=== PATIENT | female | born 1950 | race African-American/Black ===

== ENCOUNTER 2016-05-22 09:03 | Emergency (ER) | payer MEDICARE, OTHER ==
[2016-05-22 09:30] LABS: Glucose,Whole Blood 449 mg/dL (75-99)
[2016-05-22] MEDS ORDERED: SODIUM CHLORIDE 0.9% 1,000 ML IV ONE (09:33)
[2016-05-22] MEDS ORDERED: ACETAMINOPHEN TAB 500 MG TAB PO STA (09:58)
--- NOTE | 2016-05-22 09:58 | ED ---
Recheck HPI - General Chief Complaint: Recheck/Abnormal Lab/Rx Stated Complaint: HYPERGLYCEMIA Time Seen by Provider: 05/22/16 09:19 Source: patient, RN notes reviewed Mode of arrival: wheelchair Limitations: no limitations - History of Present Illness Initial Comments: Patient is a 65-year-old female presents to the emergency room for evaluation of hyperglycemia. Patient is present with sawmill supervisor at her long-term. Patient's sawmill supervisor states that patient's blood sugar was around 350 yesterday. Patient's sawmill supervisor states that they called patient's physician the told her to give her 10 more units of NovoLog onto her normal dose. Patient supervised states that the sugars went down. Patient's sawmill supervisor states that patient's sugar was at 441 around 6:30 this morning. Patient sawmill supervisor states they contacted the patient's physician and they told her to give her 10 extra units of NovoLog on top of her normal dose and if it still did not go down to come to the emergency room. Patient sawmill supervisor states that the sugars have not gone down. Patient sawmill supervisor denies any changes in behavior. Patient sawmill supervisor states patient is still urinating regularly and eating regularly. Patient sawmill supervisor denies any significant cough. Patient states she's having slight throat pain and abdominal pain. Patient denies nausea or vomiting, diarrhea or constipation. Patient denies headache or dizziness. Patient denies ear pain or chest pain or shortness of breath. Patient sawmill supervisor denies any fevers until arrival at the ER. - Related Data Home Medications Medication Instructions Recorded Confirmed Ammonium Lactate Cream [Lac-Hydrin 1 applic TOPICAL BID 05/22/16 05/22/16 12% Cream] Aspirin EC [Ecotrin Low Dose] 81 mg PO DAILY 05/22/16 05/22/16 Benztropine Mesylate [Cogentin] 0.5 mg PO DAILY 05/22/16 05/22/16 Brimonidine Tartrate [Alphagan P 1 drop BOTH EYES BID 05/22/16 05/22/16 0.1% Ophth Soln] Carboxymethylcellulose Sodium 1 drop RIGHT EYE DAILY PRN 05/22/16 05/22/16 [Refresh Tears] Cholecalciferol [Vitamin D3] 1,000 unit PO DAILY 05/22/16 05/22/16 Docusate [Colace] 100 mg PO BID 05/22/16 05/22/16 Hydrochlorothiazide [Hydrodiuril] 25 mg PO DAILY 05/22/16 05/22/16 Insulin Aspart [NovoLOG] 1 unit SQ AC-SUPPER 05/22/16 05/22/16 Insulin Aspart [NovoLOG] 10 unit SQ QAM 05/22/16 05/22/16 Insulin Aspart [NovoLOG] 12 unit SQ AC-LUNCH 05/22/16 05/22/16 Insulin Detemir [Levemir] 42 unit SQ HS 05/22/16 05/22/16 Lactulose 10 gm PO BID 05/22/16 05/22/16 Latanoprost [Xalatan 0.005%] 1 drop BOTH EYES HS 05/22/16 05/22/16 Levothyroxine Sodium [Synthroid] 125 mcg PO DAILY 05/22/16 05/22/16 Lisinopril [Zestril] 5 mg PO HS 05/22/16 05/22/16 Omeprazole 20 mg PO DAILY 05/22/16 05/22/16 Sertraline [Zoloft] 100 mg PO HS 05/22/16 05/22/16 Timolol [Betimol 0.5% Ophth Soln] 1 drop BOTH EYES BID 05/22/16 05/22/16 risperiDONE 3 mg PO QAM 05/22/16 05/22/16 risperiDONE 4.5 mg PO HS 05/22/16 05/22/16 Allergies Allergy/AdvReac Type Severity Reaction Status Date / Time Penicillins Allergy Unknown Verified 05/22/16 10:17 Review of Systems ROS Statement: Those systems with pertinent positive or pertinent negative responses have been documented in the HPI. ROS Other: All systems not noted in ROS Statement are negative. Past Medical History Past Medical History: Diabetes Mellitus Additional Past Medical History / Comment(s): hep b, mental retardation History of Any Multi-Drug Resistant Organisms: None Reported Past Surgical History: Hysterectomy Past Psychological History: Schizophrenia Smoking Status: Never smoker Past Alcohol Use History: None Reported Past Drug Use History: None Reported General Exam - General Exam Comments Initial Comments: Sitting in exam room in no acute distress. Limitations: no limitations General appearance: alert Head exam: Present: atraumatic, normocephalic, normal inspection Eye exam: Present: normal appearance, PERRL, EOMI Pupils: Present: normal accommodation ENT exam: Present: normal exam, mucous membranes moist, TM's normal bilaterally , normal external ear exam Neck exam: Present: normal inspection, full ROM. Absent: tenderness, lymphadenopathy Respiratory exam: Present: normal lung sounds bilaterally. Absent: respiratory distress Cardiovascular Exam: Present: normal rhythm, tachycardia, normal heart sounds GI/Abdominal exam: Present: soft, normal bowel sounds. Absent: distended, tenderness, guarding, rebound, rigid Extremities exam: Present: normal inspection Back exam: Present: normal inspection Neurological exam: Present: alert Psychiatric exam: Present: normal affect, normal mood Skin exam: Present: warm, dry, intact, normal color. Absent: rash Course Vital Signs 05/22/16 05/22/16 05/22/16 09:10 10:34 11:30 Temperature 100.5 F H Pulse Rate 108 H 97 Respiratory 17 20 Rate Blood Pressure 147/76 167/76 186/76 O2 Sat by Pulse 94 L 99 Oximetry 05/22/16 05/22/16 05/22/16 12:30 13:30 14:15 Temperature 98.9 F 97.9 F Pulse Rate 94 90 89 Respiratory 18 18 18 Rate Blood Pressure 166/79 163/82 157/72 O2 Sat by Pulse 96 98 98 Oximetry Medical Decision Making - Medical Decision Making Patient is a 65-year-old female presents emergency room for evaluation of hyperglycemia and fever. WBC slightly elevated. Patient's glucose down trending after fluids and subq insulin. Other labs show no concerning findings. Urine shows no sign of urinary tract infection. CT of abdomen/ pelvis shows no acute processes. Patient's vitals are all stable. Patient is feeling better. Patient can be discharged and advised to follow-up with primary care provider for possible adjustment of insulin dose. Patient's sawmill supervisor states understands everything that was discussed with her. Return parameters discussed. Case discussed with Dr. Etienne. - Lab Data Result diagrams: 05/22/16 10:11 05/22/16 10:11 Lab Results 05/22/16 05/22/16 05/22/16 Range/Units 09:15 09:28 10:11 WBC (3.8-10.6) k/uL RBC (3.80-5.40) m/uL Hgb (11.4-16.0) gm/dL Hct (34.0-46.0) % MCV (80.0-100.0) fL MCH (25.0-35.0) pg MCHC (31.0-37.0) g/dL RDW (11.5-15.5) % Plt Count (150-450) k/uL Neutrophils % % Lymphocytes % % Monocytes % % Eosinophils % % Basophils % % Neutrophils # (1.3-7.7) k/uL Lymphocytes # (1.0-4.8) k/uL Monocytes # (0-1.0) k/uL Eosinophils # (0-0.7) k/uL Basophils # (0-0.2) k/uL Hypochromasia PT (9.0-12.0) sec INR (<1.1) APTT (22.0-30.0) sec Sodium (137-145) mmol/L Potassium (3.5-5.1) mmol/L Chloride (98-107) mmol/L Carbon Dioxide (22-30) mmol/L Anion Gap mmol/L BUN (7-17) mg/dL Creatinine (0.52-1.04) mg/dL Est GFR (MDRD) Af Amer (>60 ml/min/1.73 sqM) Est GFR (MDRD) Non-Af (>60 ml/min/1.73 sqM) Glucose (74-99) mg/dL POC Glucose (mg/dL) 419 H 449 H (75-99) mg/dL POC Glu Spinal Surgeon Jory Zapata Emily Plasma Lactic Acid Singh (0.7-2.0) mmol/L Calcium (8.4-10.2) mg/dL Total Bilirubin (0.2-1.3) mg/dL AST (14-36) U/L ALT (9-52) U/L Alkaline Phosphatase (38-126) U/L Total Creatine Kinase 58 (30-135) U/L CK-MB (CK-2) 0.3 (0.0-2.4) ng/mL CK-MB (CK-2) Rel Index 0.5 Troponin I <0.012 (0.000-0.034) ng/mL Total Protein (6.3-8.2) g/dL Albumin (3.5-5.0) g/dL Cortisol ug/dL Urine Color Urine Appearance (Clear) Urine pH (5.0-8.0) Ur Specific Sharon (1.001-1.035) Urine Protein (Negative) Urine Glucose (UA) (Negative) Urine Ketones (Negative) Urine Blood (Negative) Urine Nitrite (Negative) Urine Bilirubin (Negative) Urine Urobilinogen (<2.0) mg/dL Ur Leukocyte Esterase (Negative) Acetone, Qual (Negative) Influenza Type A RNA (Not Detectd) Influenza Type B (PCR) (Not Detectd) Group A Strep Rapid (Negative) 05/22/16 05/22/16 05/22/16 Range/Units 10:11 10:11 10:11 WBC 11.1 H (3.8-10.6) k/uL RBC 4.52 (3.80-5.40) m/uL Hgb 12.4 (11.4-16.0) gm/dL Hct 40.0 (34.0-46.0) % MCV 88.4 (80.0-100.0) fL MCH 27.5 (25.0-35.0) pg MCHC 31.1 (31.0-37.0) g/dL RDW 13.7 (11.5-15.5) % Plt Count 160 (150-450) k/uL Neutrophils % 77 % Lymphocytes % 10 % Monocytes % 8 % Eosinophils % 1 % Basophils % 1 % Neutrophils # 8.6 H (1.3-7.7) k/uL Lymphocytes # 1.1 (1.0-4.8) k/uL Monocytes # 0.9 (0-1.0) k/uL Eosinophils # 0.1 (0-0.7) k/uL Basophils # 0.1 (0-0.2) k/uL Hypochromasia Slight PT (9.0-12.0) sec INR (<1.1) APTT (22.0-30.0) sec Sodium 136 L (137-145) mmol/L Potassium 4.5 (3.5-5.1) mmol/L Chloride 94 L (98-107) mmol/L Carbon Dioxide 29 (22-30) mmol/L Anion Gap 13 mmol/L BUN 14 (7-17) mg/dL Creatinine 0.70 (0.52-1.04) mg/dL Est GFR (MDRD) Af Amer >60 (>60 ml/min/1.73 sqM) Est GFR (MDRD) Non-Af >60 (>60 ml/min/1.73 sqM) Glucose 394 H (74-99) mg/dL POC Glucose (mg/dL) (75-99) mg/dL POC Glu Spinal Surgeon ID Plasma Lactic Acid Singh (0.7-2.0) mmol/L Calcium 9.1 (8.4-10.2) mg/dL Total Bilirubin 0.6 (0.2-1.3) mg/dL AST 41 H (14-36) U/L ALT 41 (9-52) U/L Alkaline Phosphatase 87 (38-126) U/L Total Creatine Kinase (30-135) U/L CK-MB (CK-2) (0.0-2.4) ng/mL CK-MB (CK-2) Rel Index Troponin I (0.000-0.034) ng/mL Total Protein 7.5 (6.3-8.2) g/dL Albumin 4.1 (3.5-5.0) g/dL Cortisol 16 ug/dL Urine Color Urine Appearance (Clear) Urine pH (5.0-8.0) Ur Specific Sharon (1.001-1.035) Urine Protein (Negative) Urine Glucose (UA) (Negative) Urine Ketones (Negative) Urine Blood (Negative) Urine Nitrite (Negative) Urine Bilirubin (Negative) Urine Urobilinogen (<2.0) mg/dL Ur Leukocyte Esterase (Negative) Acetone, Qual (Negative) Influenza Type A RNA Not Detected (Not Detectd) Influenza Type B (PCR) Not Detected (Not Detectd) Group A Strep Rapid (Negative) 05/22/16 05/22/16 05/22/16 Range/Units 10:11 10:11 10:11 WBC (3.8-10.6) k/uL RBC (3.80-5.40) m/uL Hgb (11.4-16.0) gm/dL Hct (34.0-46.0) % MCV (80.0-100.0) fL MCH (25.0-35.0) pg MCHC (31.0-37.0) g/dL RDW (11.5-15.5) % Plt Count (150-450) k/uL Neutrophils % % Lymphocytes % % Monocytes % % Eosinophils % % Basophils % % Neutrophils # (1.3-7.7) k/uL Lymphocytes # (1.0-4.8) k/uL Monocytes # (0-1.0) k/uL Eosinophils # (0-0.7) k/uL Basophils # (0-0.2) k/uL Hypochromasia PT 10.3 (9.0-12.0) sec INR 1.0 (<1.1) APTT 23.4 (22.0-30.0) sec Sodium (137-145) mmol/L Potassium (3.5-5.1) mmol/L Chloride (98-107) mmol/L Carbon Dioxide (22-30) mmol/L Anion Gap mmol/L BUN (7-17) mg/dL Creatinine (0.52-1.04) mg/dL Est GFR (MDRD) Af Amer (>60 ml/min/1.73 sqM) Est GFR (MDRD) Non-Af (>60 ml/min/1.73 sqM) Glucose (74-99) mg/dL POC Glucose (mg/dL) (75-99) mg/dL POC Glu Spinal Surgeon ID Plasma Lactic Acid Singh 1.7 (0.7-2.0) mmol/L Calcium (8.4-10.2) mg/dL Total Bilirubin (0.2-1.3) mg/dL AST (14-36) U/L ALT (9-52) U/L Alkaline Phosphatase (38-126) U/L Total Creatine Kinase (30-135) U/L CK-MB (CK-2) (0.0-2.4) ng/mL CK-MB (CK-2) Rel Index Troponin I (0.000-0.034) ng/mL Total Protein (6.3-8.2) g/dL Albumin (3.5-5.0) g/dL Cortisol ug/dL Urine Color Urine Appearance (Clear) Urine pH (5.0-8.0) Ur Specific Sharon (1.001-1.035) Urine Protein (Negative) Urine Glucose (UA) (Negative) Urine Ketones (Negative) Urine Blood (Negative) Urine Nitrite (Negative) Urine Bilirubin (Negative) Urine Urobilinogen (<2.0) mg/dL Ur Leukocyte Esterase (Negative) Acetone, Qual (Negative) Influenza Type A RNA (Not Detectd) Influenza Type B (PCR) (Not Detectd) Group A Strep Rapid Negative (Negative) 05/22/16 05/22/16 05/22/16 Range/Units 10:11 11:24 11:25 WBC (3.8-10.6) k/uL RBC (3.80-5.40) m/uL Hgb (11.4-16.0) gm/dL Hct (34.0-46.0) % MCV (80.0-100.0) fL MCH (25.0-35.0) pg MCHC (31.0-37.0) g/dL RDW (11.5-15.5) % Plt Count (150-450) k/uL Neutrophils % % Lymphocytes % % Monocytes % % Eosinophils % % Basophils % % Neutrophils # (1.3-7.7) k/uL Lymphocytes # (1.0-4.8) k/uL Monocytes # (0-1.0) k/uL Eosinophils # (0-0.7) k/uL Basophils # (0-0.2) k/uL Hypochromasia PT (9.0-12.0) sec INR (<1.1) APTT (22.0-30.0) sec Sodium (137-145) mmol/L Potassium (3.5-5.1) mmol/L Chloride (98-107) mmol/L Carbon Dioxide (22-30) mmol/L Anion Gap mmol/L BUN (7-17) mg/dL Creatinine (0.52-1.04) mg/dL Est GFR (MDRD) Af Amer (>60 ml/min/1.73 sqM) Est GFR (MDRD) Non-Af (>60 ml/min/1.73 sqM) Glucose (74-99) mg/dL POC Glucose (mg/dL) 358 H (75-99) mg/dL POC Glu Spinal Surgeon ID Dheeraj Fan Plasma Lactic Acid Singh (0.7-2.0) mmol/L Calcium (8.4-10.2) mg/dL Total Bilirubin (0.2-1.3) mg/dL AST (14-36) U/L ALT (9-52) U/L Alkaline Phosphatase (38-126) U/L Total Creatine Kinase (30-135) U/L CK-MB (CK-2) (0.0-2.4) ng/mL CK-MB (CK-2) Rel Index Troponin I (0.000-0.034) ng/mL Total Protein (6.3-8.2) g/dL Albumin (3.5-5.0) g/dL Cortisol ug/dL Urine Color Light Yellow Urine Appearance Clear (Clear) Urine pH 6.5 (5.0-8.0) Ur Specific Sharon 1.011 (1.001-1.035) Urine Protein Negative (Negative) Urine Glucose (UA) 4+ H (Negative) Urine Ketones Negative (Negative) Urine Blood Negative (Negative) Urine Nitrite Negative (Negative) Urine Bilirubin Negative (Negative) Urine Urobilinogen <2.0 (<2.0) mg/dL Ur Leukocyte Esterase Negative (Negative) Acetone, Qual Negative (Negative) Influenza Type A RNA (Not Detectd) Influenza Type B (PCR) (Not Detectd) Group A Strep Rapid (Negative) 05/22/16 Range/Units 12:10 WBC (3.8-10.6) k/uL RBC (3.80-5.40) m/uL Hgb (11.4-16.0) gm/dL Hct (34.0-46.0) % MCV (80.0-100.0) fL MCH (25.0-35.0) pg MCHC (31.0-37.0) g/dL RDW (11.5-15.5) % Plt Count (150-450) k/uL Neutrophils % % Lymphocytes % % Monocytes % % Eosinophils % % Basophils % % Neutrophils # (1.3-7.7) k/uL Lymphocytes # (1.0-4.8) k/uL Monocytes # (0-1.0) k/uL Eosinophils # (0-0.7) k/uL Basophils # (0-0.2) k/uL Hypochromasia PT (9.0-12.0) sec INR (<1.1) APTT (22.0-30.0) sec Sodium (137-145) mmol/L Potassium (3.5-5.1) mmol/L Chloride (98-107) mmol/L Carbon Dioxide (22-30) mmol/L Anion Gap mmol/L BUN (7-17) mg/dL Creatinine (0.52-1.04) mg/dL Est GFR (MDRD) Af Amer (>60 ml/min/1.73 sqM) Est GFR (MDRD) Non-Af (>60 ml/min/1.73 sqM) Glucose (74-99) mg/dL POC Glucose (mg/dL) 315 H (75-99) mg/dL POC Glu Spinal Surgeon ID Dheeraj Fan Plasma Lactic Acid Singh (0.7-2.0) mmol/L Calcium (8.4-10.2) mg/dL Total Bilirubin (0.2-1.3) mg/dL AST (14-36) U/L ALT (9-52) U/L Alkaline Phosphatase (38-126) U/L Total Creatine Kinase (30-135) U/L CK-MB (CK-2) (0.0-2.4) ng/mL CK-MB (CK-2) Rel Index Troponin I (0.000-0.034) ng/mL Total Protein (6.3-8.2) g/dL Albumin (3.5-5.0) g/dL Cortisol ug/dL Urine Color Urine Appearance (Clear) Urine pH (5.0-8.0) Ur Specific Sharon (1.001-1.035) Urine Protein (Negative) Urine Glucose (UA) (Negative) Urine Ketones (Negative) Urine Blood (Negative) Urine Nitrite (Negative) Urine Bilirubin (Negative) Urine Urobilinogen (<2.0) mg/dL Ur Leukocyte Esterase (Negative) Acetone, Qual (Negative) Influenza Type A RNA (Not Detectd) Influenza Type B (PCR) (Not Detectd) Group A Strep Rapid (Negative) - Radiology Data Radiology results: report reviewed, image reviewed Disposition Clinical Impression: Hyperglycemia, Fever Disposition: HOME SELF-CARE Condition: Good Instructions: Diabetic Hyperglycemia (ED) Additional Instructions: Tylenol or Motrin as needed for fever. Continue giving insulin as directed. Drink plenty of fluids. Please up with primary care provider for possible readjustment of insulin. If any new symptom arises or symptoms worsen, return to ER as soon as possible. Referrals: Jimi Swain MD [Primary Care Provider] - 1-2 days Time of Disposition: 13:53
--- NOTE | 2016-05-22 10:36 | XR ---
EXAMINATION TYPE: XR chest 2V DATE OF EXAM: 05/22/2016 10:29 AM HISTORY: Fever. REFERENCE: Previous study dated 12/21/2013. FINDINGS: Heart size is upper limits of normal. There is some unfolding of the thoracic aorta. I do n ot see evidence of pneumonia or edema. Pleural spaces appear clear. IMPRESSION: BORDERLINE CARDIOMEGALY.
[2016-05-22 10:37] LABS: Basophils # (A) 0.1 k/uL (0-0.2); Basophils % (A) 1 %; CH 27.3; CHCM 31.1; Eosinophils # (A) 0.1 k/uL (0-0.7); Eosinophils % (A) 1 %; HDW 2.31; HGB 12.4 gm/dL (11.4-16.0); Hypochromasia Slight; Luc % (Auto) 4; Lymphocytes # (A) 1.1 k/uL (1.0-4.8); Lymphocytes % (A) 10 %; MCH 27.5 pg (25.0-35.0); MCHC 31.1 g/dL (31.0-37.0); MCV 88.4 fL (80.0-100.0); Mean Platelet Volume 9.8; Monocytes # (A) 0.9 k/uL (0-1.0); Monocytes % (A) 8 %; Neutrophils # (A) 8.6 k/uL (1.3-7.7); Neutrophils % (A) 77 %; RBC 4.52 m/uL (3.80-5.40); RDW 13.7 % (11.5-15.5); WBC 11.1 k/uL (3.8-10.6); WBC (Perox) 11.21
[2016-05-22 10:41] LABS: Partial Thromboplastin Time 23.4 sec (22.0-30.0); Prothrombin Time 10.3 sec (9.0-12.0)
[2016-05-22 10:46] LABS: ALT 41 U/L (9-52); AST 41 U/L (14-36); Alkaline Phosphatase 87 U/L (38-126); Anion Gap 13 mmol/L; Blood Urea Nitrogen 14 mg/dL (7-17); Calcium 9.1 mg/dL (8.4-10.2); Carbon Dioxide 29 mmol/L (22-30); Chloride 94 mmol/L (98-107); Glucose 394 mg/dL (74-99); Non-African American GFR(MDRD) >60 (>60 ml/min/1.73 sqM); Potassium 4.5 mmol/L (3.5-5.1); Sodium 136 mmol/L (137-145); Total Bilirubin 0.6 mg/dL (0.2-1.3); Total Protein 7.5 g/dL (6.3-8.2)
[2016-05-22 10:54] LABS: Creatine Kinase 58 U/L (30-135)
[2016-05-22] MEDS ORDERED: INSULIN REGULAR 100 UNIT/ML VIAL SQ STA (11:00)
[2016-05-22 11:06] LABS: Creatine Kinase MB 0.3 ng/mL (0.0-2.4); Troponin I <0.012 ng/mL (0.000-0.034)
[2016-05-22 11:18] LABS: Glucose,Whole Blood 419 mg/dL (75-99)
[2016-05-22 11:28] LABS: Glucose,Whole Blood 358 mg/dL (75-99)
[2016-05-22 11:55] LABS: Appearance,Urine Clear (Clear); Bilirubin,Urine Negative (Negative); Glucose,Urine (UA) 4+ (Negative); Ketones,Urine Negative (Negative); Leukocyte Esterase,Urine Negative (Negative); Nitrite,Urine Negative (Negative); PH, Urine 6.5 (5.0-8.0); Protein,Urine Negative (Negative); Specific Gravity,Urine 1.011 (1.001-1.035); UA Billing (MACRO vs. MICRO) CHEM; Urobilinogen,Urine <2.0 mg/dL (<2.0)
[2016-05-22 12:13] LABS: Glucose,Whole Blood 315 mg/dL (75-99)
[2016-05-22] MEDS ORDERED: RX INFO: IV CONTRAST WAS GIVEN 1 EACH MISC MISCELLANE PRN (12:13)
--- NOTE | 2016-05-22 13:36 | CT ---
EXAMINATION TYPE: CT abdomen pelvis w con DATE OF EXAM: 05/22/2016 1:28 PM COMPARISON: NONE HISTORY: fever and LLQ pain CT DLP: 1760 mGycm CONTRAST: CT scan of the abdomen and pelvis is performed without Oral Contrast and with IV Contrast, patient in jected with 100 mL of Omnipaque 300. FINDINGS: LUNG BASES-: No visible nodule. No infiltrate. There is dependent basilar atelectasis. LIVER/GB: No calcified gallstones. No space occupying hepatic lesion. Biliary tree is of normal ca liber. PANCREAS: No inflammation. No distinct mass. SPLEEN: No splenic enlargement. No lesion seen. ADRENALS: No nodule. No thickening. KIDNEYS/BLADDER: No hydronephrosis. No nephrolithiasis. No disctinct renal mass. Urinary bladder g rossly unremarkable. BOWEL: Normal appendix. Normal bowel caliber. No inflammation. There is evidence of small hiatal he rnia with gastroesophageal reflux. There is mild fecal stasis. Scattered diverticulosis without diver ticulitis. GENITAL ORGANS: No gross abnormality. LYMPH NODES: No greater than 1cm abdominal or pelvic lymph nodes are appreciated. AORTA: No significant abnormality. OSSEOUS STRUCTURES: No significant abnormality is seen. OTHER: No significant additional abnormality is seen. IMPRESSION: 1. No acute intra-abdominal process to explain the patient's symptoms. 2. Small hiatal hernia with gastroesophageal reflux.
[2016-05-22 14:14] VITALS: RESP 18
[2016-05-22 14:17] VITALS: BP 157/72; TEMP 97.9
[2016-05-22 14:19] VITALS: PULSE 89
== END 2016-05-22 14:15 | disposition home or self-care (01) ==
LOC: EC 09:03
DX: E11.65 Type 2 diabetes mellitus with hyperglycemia (principal); R50.9 Fever, unspecified; R10.9 Unspecified abdominal pain; I44.0 Atrioventricular block, first degree; F20.9 Schizophrenia, unspecified; Z88.0 Allergy status to penicillin; Z79.4 Long term (current) use of insulin; Z79.82 Long term (current) use of aspirin; Z79.899 Other long term (current) drug therapy
CPT/HCPCS: 99284; 96360; 36415; 93005; 80053; 82533; 82550; 82553; 82009; 83605; 84484; 85025; 85610; 85730; 81003; 87040; 87086; 87081; 87430; 87502; 71020; 74177; Q9967

== ENCOUNTER → 2017-03-08 | Outpatient (CLI) | payer MEDICARE ==
--- NOTE | 2017-03-09 09:49 | MM ---
Reason for exam: screening (asymptomatic). Last mammogram was performed 2 years and 10 months ago. History: Patient is postmenopausal. Family history of breast cancer in mother. Physical Findings: A clinical breast exam by your physician is recommended on an annual basis and results should be correlated with mammographic findings. MG 3D Screening Mammo W/Cad Bilateral CC and MLO view(s) were taken. Prior study comparison: May 19, 2014, bilateral MG screening mammo w CAD. May 01, 2013, bilateral digital screening mammo w/CAD. The breast tissue is heterogeneously dense. This may lower the sensitivity of mammography. Finding: There are typically benign diffuse/scattered calcifications in both breasts. No suspicious abnormality. No significant changes in finding since May 19, 2014 and May 01, 2013. ASSESSMENT: Benign, BI-RAD 2 RECOMMENDATION: Routine screening mammogram of both breasts in 1 year.
== END | disposition home or self-care (01) ==
LOC: RADMAMWWP 13:07 → EDBD 13:07
PROVIDERS: ATTEND Family Medicine
DX: Z12.31 Encounter for screening mammogram for malignant neoplasm of breast (principal)
CPT/HCPCS: 77063; 77067

== ENCOUNTER → 2018-11-07 | Outpatient (CLI) | payer MEDICARE, OTHER ==
[2018-11-07 11:49] LABS: African American GFR (CKD) >90 (>60 ml/min/1.73 sqM); Blood Urea Nitrogen 20 mg/dL (7-17)
--- NOTE | 2018-11-07 12:56 | CT ---
EXAMINATION TYPE: CT abdomen w con DATE OF EXAM: 11/07/2018 COMPARISON: 05/22/2016 HISTORY: Abnormal findings CT DLP: 1041.5 mGycm CONTRAST: CT scan of the abdomen is performed with Oral Contrast and with IV Contrast, patient injected with 10 0 mL of Isovue 300. FINDINGS: LUNG BASES-: No visible nodule. No infiltrate. LIVER/GB: No calcified gallstones. No space occupying hepatic lesion. Biliary tree is of normal ca liber. PANCREAS: No inflammation. No distinct mass. SPLEEN: No splenic enlargement. No lesion seen. ADRENALS: No nodule. No thickening. KIDNEYS/BLADDER: No hydronephrosis. No nephrolithiasis. No distinct renal mass. Urinary bladder g rossly unremarkable. BOWEL: Visualized bowel loops appear to be within normal limits. No evidence for inflammatory change. Nonvisualization of the appendix. No free air or abscess. Again noted is a degree of gastroesophagea l reflux and small hiatal hernia. LYMPH NODES: No greater than 1cm abdominal or pelvic lymph nodes are appreciated. AORTA: No significant abnormality. OSSEOUS STRUCTURES: No significant abnormality is seen. OTHER: No significant additional abnormality is seen. IMPRESSION: 1. Again noted is a degree of gastroesophageal reflux and small hiatal hernia.
== END ==
LOC: RADCTMAIN 10:44
PROVIDERS: ATTEND Physician Assistant
DX: K44.9 Diaphragmatic hernia without obstruction or gangrene (principal); K21.9 Gastro-esophageal reflux disease without esophagitis
CPT/HCPCS: 82565; 84520; 74160; 36415; Q9967

== ENCOUNTER 2019-12-26 14:16 | Inpatient (IN) | payer MEDICARE, OTHER ==
[2019-12-26 14:26] LABS: Glucose,Whole Blood 233 mg/dL (75-99)
[2019-12-26] MEDS ORDERED: SODIUM CHLORIDE 0.9% 1,000 ML IV ONE (14:56)
[2019-12-26] MEDS ORDERED: LORazepam 2 MG/ML INJ IV STA ×2 (14:56→16:43)
[2019-12-26 15:11] LABS: Basophils # (A) 0.1 k/uL (0-0.2); Basophils % (A) 1 %; Eosinophils # (A) 0.2 k/uL (0-0.7); Eosinophils % (A) 2 %; HCT 33.9 % (34.0-46.0); Lymphocytes # (A) 1.2 k/uL (1.0-4.8); Lymphocytes % (A) 11 %; MCH 29.1 pg (25.0-35.0); MCHC 32.6 g/dL (31.0-37.0); MCV 89.5 fL (80.0-100.0); Mean Platelet Volume 8.5; Monocytes % (A) 8 %; Neutrophils # (A) 9.2 k/uL (1.3-7.7); Neutrophils % (A) 78 %; Platelet Count 179 k/uL (150-450); RBC 3.79 m/uL (3.80-5.40); RDW 14.3 % (11.5-15.5); WBC 11.8 k/uL (3.8-10.6)
[2019-12-26 15:12] LABS: Appearance,Urine Clear (Clear); Bilirubin,Urine Negative (Negative); Blood,Urine Negative (Negative); Color,Urine Light Yellow; Glucose,Urine (UA) Negative (Negative); Ketones,Urine Negative (Negative); Leukocyte Esterase,Urine Negative (Negative); Nitrite,Urine Negative (Negative); PH, Urine 6.5 (5.0-8.0); Protein,Urine Negative (Negative); Specific Gravity,Urine 1.011 (1.001-1.035); Urobilinogen,Urine <2.0 mg/dL (<2.0)
[2019-12-26 15:18] LABS: ALT 223 U/L (4-34); AST 183 U/L (14-36); African American GFR (CKD) >90 (>60 ml/min/1.73 sqM); Albumin 3.9 g/dL (3.5-5.0); Alkaline Phosphatase 84 U/L (38-126); Anion Gap 10 mmol/L; Blood Urea Nitrogen 17 mg/dL (7-17); Calcium 8.7 mg/dL (8.4-10.2); Carbon Dioxide 28 mmol/L (22-30); Chloride 91 mmol/L (98-107); Creatine Kinase 500 U/L (30-135); Glucose 227 mg/dL (74-99); Non-African American GFR(CKD) >90 (>60 ml/min/1.73 sqM); Potassium 4.2 mmol/L (3.5-5.1); Sodium 129 mmol/L (137-145); Total Bilirubin 0.5 mg/dL (0.2-1.3); Total Protein 7.3 g/dL (6.3-8.2)
[2019-12-26 15:23] LABS: Amphetamine Screen,Urine Not Detected (NotDetected); Barbiturate Screen,Urine Not Detected (NotDetected); Benzodiazepines Screen,Urine Not Detected (NotDetected); Cocaine Screen,Urine Not Detected (NotDetected); Methadone Screen, Urine Not Detected (NotDetected); Opiate Screen,Urine Not Detected (NotDetected); Oxycodone Screen, Urine Not Detected (NotDetected); Phencyclidine Screen,Urine Not Detected (NotDetected); Tricyclic Antidepressant,Urine Not Detected (NotDetected); Urn Cannabinoid Scrn Not Detected (NotDetected)
[2019-12-26 15:29] LABS: Partial Thromboplastin Time 25.6 sec (22.0-30.0); Prothrombin Time 9.9 sec (9.0-12.0)
--- NOTE | 2019-12-26 15:38 | CT ---
EXAMINATION TYPE: CT brain wo con DATE OF EXAM: 12/26/2019 HISTORY: Patient poor historian. Altered mental status. CT DLP: 1158.4 mGycm. Automated Exposure Control for Dose Reduction was Utilized. TECHNIQUE: CT scan of the head is performed without contrast. COMPARISON: CT brain January 02, 2013. FINDINGS: There is no acute intracranial hemorrhage or midline shift identified. There is diffuse v entricular and sulcal prominence consistent with diffuse age-related cerebral atrophy. There is low- attenuation in the periventricular white matter consistent with chronic small vessel ischemic change. Right-sided basal ganglia calcifications redemonstrated. There is large mucous retention cyst or celia yp in the left maxillary sinus otherwise the paranasal sinuses are clear. Lens deviation noted bilate rally correlates with 2011 CT, underlying strabismus suspected. IMPRESSION: No acute intracranial hemorrhage or midline shift. There is mild to moderate diffuse ag e-related cerebral atrophy and minimal chronic small vessel ischemic change redemonstrated. No signi ficant change from 2013 study.
--- NOTE | 2019-12-26 15:41 | XR ---
EXAMINATION TYPE: XR chest 2V DATE OF EXAM: 12/26/2019 COMPARISON: Chest x-ray May 22, 2016. HISTORY: Altered mental status and weakness. TECHNIQUE: Frontal and lateral views of the chest are obtained. FINDINGS: Low lung volumes redemonstrated. Exam suboptimal due to patient's large body habitus. There is no new suspicious peripheral focal air space opacity, pleural effusion, or pneumothorax seen. Th e cardiac silhouette size is mildly enlarged. Central vascular congestion felt present. Underlying s coliosis noted. IMPRESSION: Possible CHF exacerbation as there is lung volumes and mild cardiomegaly with suspected new mild central vascular congestion. Correlate clinically.
[2019-12-26] MEDS ORDERED: diphenhydrAMINE 50 MG/ML 1 ML VIAL IVP STA (15:47)
--- NOTE | 2019-12-26 16:22 | ED ---
General Adult HPI - General Chief complaint: Altered Mental Status Stated complaint: Altered mental status Time Seen by Provider: 12/26/19 14:45 Source: EMS, RN notes reviewed, old records reviewed Mode of arrival: EMS Limitations: altered mental status, physical limitation - History of Present Illness Initial comments: 69-year-old female presenting from [facility] for evaluation of altered mental status. Patient has history of schizophrenia,baseline cognitive impairment. She has a baseline of alert and oriented 2. She had several medication changes this week including gabapentin and Peterman which were initiated on Sunday and resulted in an altered level of consciousness. These medications were discontinued and however the patient does still remain altered. She is unable to contribute to the history. - Related Data Home Medications Medication Instructions Recorded Confirmed Aspirin EC [Ecotrin Low Dose] 81 mg PO DAILY 05/22/16 12/26/19 Benztropine Mesylate [Cogentin] 0.5 mg PO BID 05/22/16 12/26/19 Carboxymethylcellulose Sodium 1 drop RIGHT EYE BID 05/22/16 12/26/19 [Refresh Tears] Cholecalciferol [Vitamin D3] 2,000 unit PO DAILY 05/22/16 12/26/19 INSULIN ASPART (NovoLOG) [NovoLOG] 14 unit SQ AC-BID@0900,1200 05/22/16 12/26/19 INSULIN ASPART (NovoLOG) [NovoLOG] 18 unit SQ AC-SUPPER 05/22/16 12/26/19 INSULIN ASPART (NovoLOG) [NovoLOG] See Protocol SQ AC-TID 05/22/16 12/26/19 Latanoprost [Xalatan 0.005%] 1 drop BOTH EYES HS 05/22/16 12/26/19 Sertraline [Zoloft] 200 mg PO HS 05/22/16 12/26/19 Timolol [Betimol 0.5% Ophth Soln] 1 drop BOTH EYES BID 05/22/16 12/26/19 Brimonidine Tartrate [Alphagan P 1 drop BOTH EYES BID 12/26/19 12/26/19 0.2% Ophth Soln] Ferrous Sulfate [Feosol] 325 mg PO HS 12/26/19 12/26/19 Insulin Detemir [Levemir Flextouch] 60 units SQ HS 12/26/19 12/26/19 Levothyroxine Sodium [Levo-T] 175 mcg PO DAILY 12/26/19 12/26/19 Metoprolol Succinate (ER) [Toprol 50 mg PO DAILY 12/26/19 12/26/19 Xl] Mirtazapine 15 mg PO HS 12/26/19 12/26/19 Omeprazole 40 mg PO DAILY 12/26/19 12/26/19 amLODIPine [Norvasc] 10 mg PO DAILY 12/26/19 12/26/19 hydroCHLOROthiazide [Hydrodiuril] 50 mg PO DAILY 12/26/19 12/26/19 lisinopriL 40 mg PO DAILY 12/26/19 12/26/19 risperiDONE [RisperDAL] 4 mg PO HS 12/26/19 12/26/19 Allergies Allergy/AdvReac Type Severity Reaction Status Date / Time Penicillins Allergy Unknown Verified 12/26/19 15:02 Review of Systems ROS Statement: Those systems with pertinent positive or pertinent negative responses have been documented in the HPI. ROS Other: All systems not noted in ROS Statement are negative. Past Medical History Past Medical History: Diabetes Mellitus Additional Past Medical History / Comment(s): hep b, mental retardation History of Any Multi-Drug Resistant Organisms: None Reported Past Surgical History: Hysterectomy Past Psychological History: Schizophrenia Smoking Status: Never smoker Past Alcohol Use History: None Reported Past Drug Use History: None Reported General Exam Limitations: no limitations General appearance: in no apparent distress, lethargic Head exam: Present: atraumatic, normocephalic Eye exam: Present: normal appearance, PERRL ENT exam: Present: mucous membranes dry Neck exam: Present: normal inspection. Absent: tenderness, meningismus Respiratory exam: Present: normal lung sounds bilaterally. Absent: respiratory distress, wheezes Cardiovascular Exam: Present: regular rate, normal rhythm GI/Abdominal exam: Present: soft, other (patient does flinch whenever she is touched, including the abdomen however with continued palpation there is no deep focal tenderness.). Absent: distended, tenderness Extremities exam: Present: normal capillary refill, other (rigidity throughout upper and lower extremities). Absent: pedal edema Neurological exam: Present: alert. Absent: oriented X3 Skin exam: Present: warm, dry, intact. Absent: cyanosis, diaphoretic Course Vital Signs 12/26/19 14:18 Temperature 98.2 F Pulse Rate 96 Respiratory 18 Rate Blood Pressure 161/91 O2 Sat by Pulse 100 Oximetry EKG Findings - EKG Comments: EKG Findings:: EKG: Normal sinus rhythm, left axis deviation poor baseline secondary to artifact, rate of 98, W[place] interval 198, QRS duration 88, QTC 439 Medical Decision Making - Medical Decision Making 69-year-old female presenting with worsening level consciousness and altered mental status. Patient is moving all extremities, she does have some increased muscle tone throughout. She is on multiple medications including Risperdal, Zoloft, mirtazapine, Cogentin and recently placed on Peterman and gabapentin. Uncertain if this is medication effect,, at this time I doubt a primary neurological cause for her symptoms. Head CT is negative for intracranial hemorrhage or mass effect. Chest x-ray shows somepulmonary vascular congestion, there is no respiratory distress or hypoxia. She has mild leukocytosis 11.8, anemia with hemoglobin of 11, she has a sodium 129 which is new for this patient. She has a elevated creatinine kinase at 500. Urinalysis and urine drug screen are negative. She additionally has a mildly elevated AST and ALT ultrasound of the right upper quadrant will be obtained given her altered level consciousness and transaminitis. I discussed case with Dr. Whiting who will admit. Patient will be kept on IV hydration as well as benzodiazepines as needed for agitated delirium. ultrasound has been ordered, results are pending. Psychiatry will be placed on consult for medication evaluation. - Lab Data Result diagrams: 12/26/19 14:59 12/26/19 14:59 Lab Results 12/26/19 12/26/19 12/26/19 Range/Units 14:23 14:59 14:59 WBC 11.8 H (3.8-10.6) k/uL RBC 3.79 L (3.80-5.40) m/uL Hgb 11.0 L (11.4-16.0) gm/dL Hct 33.9 L (34.0-46.0) % MCV 89.5 (80.0-100.0) fL MCH 29.1 (25.0-35.0) pg MCHC 32.6 (31.0-37.0) g/dL RDW 14.3 (11.5-15.5) % Plt Count 179 (150-450) k/uL Neutrophils % 78 % Lymphocytes % 11 % Monocytes % 8 % Eosinophils % 2 % Basophils % 1 % Neutrophils # 9.2 H (1.3-7.7) k/uL Lymphocytes # 1.2 (1.0-4.8) k/uL Monocytes # 1.0 (0-1.0) k/uL Eosinophils # 0.2 (0-0.7) k/uL Basophils # 0.1 (0-0.2) k/uL PT 9.9 (9.0-12.0) sec INR 1.0 (<1.2) APTT 25.6 (22.0-30.0) sec Sodium (137-145) mmol/L Potassium (3.5-5.1) mmol/L Chloride (98-107) mmol/L Carbon Dioxide (22-30) mmol/L Anion Gap mmol/L BUN (7-17) mg/dL Creatinine (0.52-1.04) mg/dL Est GFR (CKD-EPI)AfAm (>60 ml/min/1.73 sqM) Est GFR (CKD-EPI)NonAf (>60 ml/min/1.73 sqM) Glucose (74-99) mg/dL POC Glucose (mg/dL) 233 H (75-99) mg/dL POC Glu [employer] ID Salima Bob Calcium (8.4-10.2) mg/dL Total Bilirubin (0.2-1.3) mg/dL AST (14-36) U/L ALT (4-34) U/L Alkaline Phosphatase (38-126) U/L Ammonia (<30) umol/L Creatine Kinase (30-135) U/L Total Protein (6.3-8.2) g/dL Albumin (3.5-5.0) g/dL Urine Color Urine Appearance (Clear) Urine pH (5.0-8.0) Ur Specific [place] (1.001-1.035) Urine Protein (Negative) Urine Glucose (UA) (Negative) Urine Ketones (Negative) Urine Blood (Negative) Urine Nitrite (Negative) Urine Bilirubin (Negative) Urine Urobilinogen (<2.0) mg/dL Ur Leukocyte Esterase (Negative) Urine Opiates Screen (NotDetected) Ur Oxycodone Screen (NotDetected) Urine Methadone Screen (NotDetected) Ur Propoxyphene Screen (NotDetected) Ur Barbiturates Screen (NotDetected) U Tricyclic Antidepress (NotDetected) Ur Phencyclidine Scrn (NotDetected) Ur Amphetamines Screen (NotDetected) U Methamphetamines Scrn (NotDetected) U Benzodiazepines Scrn (NotDetected) Urine Cocaine Screen (NotDetected) U Marijuana (THC) Screen (NotDetected) 12/26/19 12/26/19 12/26/19 Range/Units 14:59 14:59 14:59 WBC (3.8-10.6) k/uL RBC (3.80-5.40) m/uL Hgb (11.4-16.0) gm/dL Hct (34.0-46.0) % MCV (80.0-100.0) fL MCH (25.0-35.0) pg MCHC (31.0-37.0) g/dL RDW (11.5-15.5) % Plt Count (150-450) k/uL Neutrophils % % Lymphocytes % % Monocytes % % Eosinophils % % Basophils % % Neutrophils # (1.3-7.7) k/uL Lymphocytes # (1.0-4.8) k/uL Monocytes # (0-1.0) k/uL Eosinophils # (0-0.7) k/uL Basophils # (0-0.2) k/uL PT (9.0-12.0) sec INR (<1.2) APTT (22.0-30.0) sec Sodium 129 L (137-145) mmol/L Potassium 4.2 (3.5-5.1) mmol/L Chloride 91 L (98-107) mmol/L Carbon Dioxide 28 (22-30) mmol/L Anion Gap 10 mmol/L BUN 17 (7-17) mg/dL Creatinine 0.59 (0.52-1.04) mg/dL Est GFR (CKD-EPI)AfAm >90 (>60 ml/min/1.73 sqM) Est GFR (CKD-EPI)NonAf >90 (>60 ml/min/1.73 sqM) Glucose 227 H (74-99) mg/dL POC Glucose (mg/dL) (75-99) mg/dL POC Glu [employer] Officer ID Calcium 8.7 (8.4-10.2) mg/dL Total Bilirubin 0.5 (0.2-1.3) mg/dL AST 183 H (14-36) U/L ALT 223 H (4-34) U/L Alkaline Phosphatase 84 (38-126) U/L Ammonia 18 (<30) umol/L Creatine Kinase 500 H (30-135) U/L Total Protein 7.3 (6.3-8.2) g/dL Albumin 3.9 (3.5-5.0) g/dL Urine Color Light Yellow Urine Appearance Clear (Clear) Urine pH 6.5 (5.0-8.0) Ur Specific [place] 1.011 (1.001-1.035) Urine Protein Negative (Negative) Urine Glucose (UA) Negative (Negative) Urine Ketones Negative (Negative) Urine Blood Negative (Negative) Urine Nitrite Negative (Negative) Urine Bilirubin Negative (Negative) Urine Urobilinogen <2.0 (<2.0) mg/dL Ur Leukocyte Esterase Negative (Negative) Urine Opiates Screen Not Detected (NotDetected) Ur Oxycodone Screen Not Detected (NotDetected) Urine Methadone Screen Not Detected (NotDetected) Ur Propoxyphene Screen Not Detected (NotDetected) Ur Barbiturates Screen Not Detected (NotDetected) U Tricyclic Antidepress Not Detected (NotDetected) Ur Phencyclidine Scrn Not Detected (NotDetected) Ur Amphetamines Screen Not Detected (NotDetected) U Methamphetamines Scrn Not Detected (NotDetected) U Benzodiazepines Scrn Not Detected (NotDetected) Urine Cocaine Screen Not Detected (NotDetected) U Marijuana (THC) Screen Not Detected (NotDetected) Disposition Clinical Impression: Altered mental status, Delirium Disposition: ADMITTED IP TO THIS [facility] Condition: Stable Is patient prescribed a controlled substance at d/c from ED?: No Referrals: Rohan Glass MD [Primary Care Provider] - 1-2 days Decision to Admit Reason: Admit from EC Decision Date: 12/26/19 Decision Time: 17:21
[2019-12-26] MEDS ORDERED: LORazepam 2 MG/ML INJ IV PRN (17:18)
[2019-12-26] MEDS ORDERED: NALOXONE 0.4 MG/ML 1 ML VIAL IV PRN (17:22)
--- NOTE | 2019-12-26 18:04 | US ---
EXAMINATION TYPE: US gallbladder DATE OF EXAM: 12/26/2019 COMPARISON: 05/05/2013 CLINICAL HISTORY: ams/transaminitis. elevated liver enzymes EXAM MEASUREMENTS: Liver Length: 17.8 cm Gallbladder Wall: 0.3 cm CBD: 0.7 cm Right Kidney: 9.3 x 3.3 x 4.1 cm Technical limitations due to overlying bowel content and altered mental status, patient moaning dur ing entire exam, patient unable to move from supine position or hold breath Pancreas: Obscured by bowel gas Liver: limited evaluation Gallbladder: stone = 2.2cm Evidence for sonographic Lezama's sign: unable to evaluate due to constant moaning CBD: slightly dilated Right Kidney: no evidence of hydronephrosis IMPRESSION: There is a large single gallstone. No dilation of the intrahepatic bile ducts. No signifi cant gallbladder wall thickening.
[2019-12-26] MEDS: SODIUM CHLORIDE 0.9% 1,000 ML IV SCH (19:56)
[2019-12-26 22:31] LABS: Glucose,Whole Blood 118 mg/dL (75-99)
[2019-12-26] MEDS: INSULIN DETEMIR (LEVEMIR) 100 UNIT/ML SYR SQ SCH (22:36)
[2019-12-26] MEDS ORDERED: risperiDONE 2 MG TAB PO SCH (23:00)
[2019-12-26] MEDS ORDERED: SERTRALINE 100 MG TAB PO SCH (23:00)
[2019-12-27] MEDS: LEVOTHYROXINE 100 MCG TAB PO SCH (04:26)
[2019-12-27] MEDS ORDERED: LEVOTHYROXINE 75 MCG TAB PO SCH (06:30)
[2019-12-27 07:08] LABS: Glucose,Whole Blood 132 mg/dL (75-99)
[2019-12-27] MEDS: ARTIFICIAL TEARS-HYPROMELLOSE DROPS 15 ML BTL RIGHT EYE SCH ×2 (09:32→20:20)
[2019-12-27] MEDS: BRIMONIDINE TARTRATE 0.2% DROPS 5 ML BTL BOTH EYES SCH ×2 (09:33→20:20)
[2019-12-27] MEDS: TIMOLOL 0.5% OPHTH DROPS 5 ML BTL BOTH EYES SCH ×2 (09:34→20:20)
[2019-12-27] MEDS: INSULIN ASPART (NovoLOG) 100 UNIT/ML VIAL SQ SCH ×5 (10:10→17:10)
[2019-12-27] MEDS: amLODIPine 10 MG TAB PO SCH (10:10)
[2019-12-27] MEDS: ASPIRIN 81 MG PO SCH (10:10)
[2019-12-27] MEDS: lisinopriL 20 MG TAB PO SCH (10:11)
[2019-12-27] MEDS: BENZTROPINE MESYLATE 0.5 MG TAB PO SCH ×2 (10:11→20:20)
[2019-12-27] MEDS: CHOLECALCIFEROL 1,000 UNIT TAB PO SCH (10:11)
[2019-12-27] MEDS: PANTOPRAZOLE 40 MG TABLET PO SCH (10:11)
[2019-12-27] MEDS: METOPROLOL SUCCINATE (ER) 50 MG TAB.ER.24H PO SCH (10:11)
[2019-12-27 11:19] LABS: Glucose,Whole Blood 158 mg/dL (75-99)
[2019-12-27] MEDS: SODIUM CHLORIDE 0.9% 1,000 ML IV SCH ×2 (11:28→12:25)
[2019-12-27 17:30] LABS: Glucose,Whole Blood 153 mg/dL (75-99)
[2019-12-27] MEDS ORDERED: INSULIN ASPART (NovoLOG) 100 UNIT/ML VIAL SQ SCH (17:30)
--- NOTE | 2019-12-27 19:54 | P.CN ---
Psychiatric Consult - . Consult date: 12/27/19 Consult:: 12/27/19 19:40 Thank you for this consult Noted from chart: 69-year-old female presenting from [facility] for evaluation of altered mental status. Patient has history of schizophrenia,baseline cognitive impairment. She has a baseline of alert and oriented 2. She had several medication changes this week including gabapentin and [place] which were initiated on Sunday and resulted in an altered level of consciousness. These medications were discontinued and however the patient does still remain altered. She is unable to contribute to the history. She has been worked up for causes of delirium and nothing found. Surely norco can push a demented person into confusion and usually causes agitation and combatitiveness. She is just cut off from her surroundings. The patient does not open her eyes or respond in any way. She does mumble and moan but there in no intelligible pattern. She does not seem to be afraid or sad or even low energy--just not processing outside input. The question must be could this have anything to do with her psychiatric illness and would psychotropics work. Certainly Schizophrenia can cause a catatonic state which is very rare but does happen. SUGGESTION: If you are sure there is no physiologic explaination, then you might try liquid haldol 2mg every 4 hours, which is not very sedating and see if she gets some relief. If no relief in 24 hours consider ECT. There is a fantastic geriatric unit with it's own ECT unit at [facility] in [place]. [phone]. Ect is the treatment of choice for catonic states. I also know that [facility] in [facility] has a psych med unit that take people right from their bed to the ECT and has an rehabilitation worker see them daily.
[2019-12-27] MEDS: LATANOPROST 0.005% OPHTH DROPS 2.5 ML BTL BOTH EYES SCH (20:20)
[2019-12-27] MEDS ORDERED: MIRTAZAPINE 15 MG TAB PO SCH (21:00)
[2019-12-27] MEDS ORDERED: FERROUS SULFATE 325 MG TAB PO SCH (21:00)
--- NOTE | 2019-12-27 21:18 | P.HPIM ---
History of Present Illness H&P Date: 12/27/19 Chief Complaint: Altered mental status History of presenting complaint: This is a 69-year-old patient who follows with Dr. nunes from visiting physicians. Patient brought into the ER from [facility] for altered mental status. Patient has a known history of schizophrenia with a baseline cognitive impairment. Normally she is AO times stroke. Earlier this week showed changes to her medications including, gabapentin and N[place] which was started on . And then she started having changes. These were then discontinued. When I saw the patient this morning, she is laying in bed mumbling, slight shaking of the hands, some tremor of the tongue, lethargic. Not able to give any further history. Review of systems-cannot be done as patient is unable to give any history Past medical history to include: Diabetes mellitus, schizophrenia, hepatitis B Social history: No reported history of smoking or alcohol. Resident of adult foster retirement. Family history: Patient cannot tell Physical examination: VITAL SIGNS: 98.2, 96, 18, 161/91, 100% room air upon presentation GENERAL: BMI 32.3, laying in bed semi-awake mumbling, some shaking of tremors arms, selena trembling. EYES: Pupils equal. Conjunctiva normal. HEENT: External appearance of nose and ears normal, oral cavity dry, trembling of the tongue. NECK: JVD unable to assess masses not palpable. HEART: First and second heart sounds are normal; no edema. LUNGS: Respiratory rate normal; clear to auscultation. ABDOMEN: Soft, nontender, liver spleen not palpable, no masses palpable. PSYCH: Patient is lethargicl. NEUROLOGICAL: [Cranial nerves grossly intact; no facial asymmetry, slight tremor of the upper extremity and the tongue. Slight stiffness of the extremities LYMPHATICS: No lymph nodes palpable in the axilla and neck Assessment: -Patient is presenting with altered mental status. At the baseline she is AO 2. Patient's currently noncommunicative. Making nonpurposeful sounds. She has some tremor of the tongue. Slight tremor of the limbs. She is not showing any classical manifestations of tardive dyskinesia. There is a temporal relationship with the patient having started, gabapentin and Naper on Sunday. Which have been discontinued. -Chronic schizophrenia -Hypothyroid. -Rule out hyperthyroidism -Diabetes mellitus type 2 chronically on insulin -Obesity BMI 32.3 -Metabolic encephalopathy and delirium from medications -Essential hypertension with urgency outpatient unable to take oral medications Plan: Patient unable to take oral medications right now it seems. We'll start the patient on Catapres 0.1 patch for the blood pressure. We'll check patient's free T4 TSH in the morning. We'll cut back the dose of respiratory to 1 mg at night. Hold off the Zoloft and the mirtazapine. Continue with Cogentin. Psychiatry consulted. Cutback the evening dose of Levemir to 20 units. Aspiration precautions. IV fluids at 1 50 mL an hour. Past Medical History Past Medical History: Diabetes Mellitus Additional Past Medical History / Comment(s): hep b, mental retardation History of Any Multi-Drug Resistant Organisms: None Reported Past Surgical History: Hysterectomy Past Psychological History: Schizophrenia Smoking Status: Never smoker Past Alcohol Use History: None Reported Past Drug Use History: None Reported - Past Family History Father Family Medical History: Unable to Obtain Medications and Allergies Home Medications Medication Instructions Recorded Confirmed Type Aspirin EC [Ecotrin Low Dose] 81 mg PO DAILY 05/22/16 12/26/19 History Benztropine Mesylate [Cogentin] 0.5 mg PO BID 05/22/16 12/26/19 History Carboxymethylcellulose Sodium 1 drop RIGHT EYE BID 05/22/16 12/26/19 History [Refresh Tears] Cholecalciferol [Vitamin D3] 2,000 unit PO DAILY 05/22/16 12/26/19 History INSULIN ASPART (NovoLOG) [NovoLOG] 14 unit SQ AC-BID@0900,1200 05/22/16 12/26/19 History INSULIN ASPART (NovoLOG) [NovoLOG] 18 unit SQ AC-SUPPER 05/22/16 12/26/19 History INSULIN ASPART (NovoLOG) [NovoLOG] See Protocol SQ AC-TID 05/22/16 12/26/19 History Latanoprost [Xalatan 0.005%] 1 drop BOTH EYES HS 05/22/16 12/26/19 History Sertraline [Zoloft] 200 mg PO HS 05/22/16 12/26/19 History Timolol [Betimol 0.5% Ophth Soln] 1 drop BOTH EYES BID 05/22/16 12/26/19 History Brimonidine Tartrate [Alphagan P 1 drop BOTH EYES BID 12/26/19 12/26/19 History 0.2% Ophth Soln] Ferrous Sulfate [Feosol] 325 mg PO HS 12/26/19 12/26/19 History Insulin Detemir [Levemir Flextouch] 60 units SQ HS 12/26/19 12/26/19 History Levothyroxine Sodium [Levo-T] 175 mcg PO DAILY 12/26/19 12/26/19 History Metoprolol Succinate (ER) [Toprol 50 mg PO DAILY 12/26/19 12/26/19 History Xl] Mirtazapine 15 mg PO HS 12/26/19 12/26/19 History Omeprazole 40 mg PO DAILY 12/26/19 12/26/19 History amLODIPine [Norvasc] 10 mg PO DAILY 12/26/19 12/26/19 History hydroCHLOROthiazide [Hydrodiuril] 50 mg PO DAILY 12/26/19 12/26/19 History lisinopriL 40 mg PO DAILY 12/26/19 12/26/19 History risperiDONE [RisperDAL] 4 mg PO HS 12/26/19 12/26/19 History Allergies Allergy/AdvReac Type Severity Reaction Status Date / Time Penicillins Allergy Unknown Verified 12/26/19 15:02 Physical Exam Vitals: Vital Signs Temp Pulse Pulse Resp BP BP BP 12/27/19 09:31 103 H 164/76 12/27/19 05:56 99.3 F 102 H 19 191/84 12/26/19 21:00 99.1 F 101 H 20 177/99 12/26/19 18:25 98.8 F 67 20 165/86 12/26/19 17:45 98 18 145/84 12/26/19 14:18 98.2 F 96 18 161/91 Pulse Ox 12/27/19 09:31 12/27/19 05:56 98 12/26/19 21:00 99 12/26/19 18:25 94 L 12/26/19 17:45 100 12/26/19 14:18 100 Intake and Output 12/26/19 12/27/19 12/27/19 22:59 06:59 14:59 Intake Total 60 Balance 60 Intake: Oral 60 Other: Voiding Method Diaper Incontinent # Voids 2 1 Weight 99.79 kg 88 kg Results CBC & Chem 7: 12/26/19 14:59 12/26/19 14:59 Labs: Abnormal Lab Results - Last 24 Hours (Table) 12/26/19 12/26/19 12/26/19 Range/Units 14:23 14:59 14:59 WBC 11.8 H (3.8-10.6) k/uL RBC 3.79 L (3.80-5.40) m/uL Hgb 11.0 L (11.4-16.0) gm/dL Hct 33.9 L (34.0-46.0) % Neutrophils # 9.2 H (1.3-7.7) k/uL Sodium 129 L (137-145) mmol/L Chloride 91 L (98-107) mmol/L Glucose 227 H (74-99) mg/dL POC Glucose (mg/dL) 233 H (75-99) mg/dL AST 183 H (14-36) U/L ALT 223 H (4-34) U/L Creatine Kinase 500 H (30-135) U/L 12/26/19 12/27/19 Range/Units 22:31 07:07 WBC (3.8-10.6) k/uL RBC (3.80-5.40) m/uL Hgb (11.4-16.0) gm/dL Hct (34.0-46.0) % Neutrophils # (1.3-7.7) k/uL Sodium (137-145) mmol/L Chloride (98-107) mmol/L Glucose (74-99) mg/dL POC Glucose (mg/dL) 118 H 132 H (75-99) mg/dL AST (14-36) U/L ALT (4-34) U/L Creatine Kinase (30-135) U/L Thrombosis Risk Factor Assmnt - Choose All That Apply Any of the Below Risk Factors Present?: Yes Each Factor Represents 1 point: Obesity (BMI >25) Each Risk Factor Represents 2 Points: Age 61-74 years Thrombosis Risk Factor Assessment Total Risk Factor Score: 3 Thrombosis Risk Factor Assessment Level: Moderate Risk
[2019-12-27 21:35] LABS: Glucose,Whole Blood 149 mg/dL (75-99)
[2019-12-27] MEDS: LACTATED RINGERS 1,000 ML IV SCH (21:52)
[2019-12-27] MEDS: risperiDONE 1 MG TAB PO SCH (21:53)
[2019-12-27] MEDS: INSULIN DETEMIR (LEVEMIR) 100 UNIT/ML SYR SQ SCH ×2 (21:53→23:46)
[2019-12-27] MEDS: ENOXAPARIN 40 MG/0.4 ML SYRINGE SQ SCH (21:53)
[2019-12-27] MEDS ORDERED: cloNIDine 0.1 MG/24HR PATCH TRANSDERM SCH (22:00)
[2019-12-28 02:00] LABS: Glucose,Whole Blood 130 mg/dL (75-99)
[2019-12-28] MEDS: LEVOTHYROXINE 100 MCG TAB PO SCH ×2 (04:48→07:41)
[2019-12-28 07:12] LABS: Glucose,Whole Blood 145 mg/dL (75-99)
[2019-12-28] MEDS: METOPROLOL SUCCINATE (ER) 50 MG TAB.ER.24H PO SCH (07:32)
[2019-12-28] MEDS: amLODIPine 10 MG TAB PO SCH (07:32)
[2019-12-28] MEDS: lisinopriL 20 MG TAB PO SCH (07:36)
[2019-12-28] MEDS: PANTOPRAZOLE 40 MG TABLET PO SCH (07:40)
[2019-12-28] MEDS: ASPIRIN 81 MG PO SCH (07:40)
[2019-12-28] MEDS: CHOLECALCIFEROL 1,000 UNIT TAB PO SCH (07:41)
[2019-12-28] MEDS: ENOXAPARIN 40 MG/0.4 ML SYRINGE SQ SCH (07:42)
[2019-12-28] MEDS: BENZTROPINE MESYLATE 0.5 MG TAB PO SCH ×2 (07:42→20:52)
[2019-12-28] MEDS: ARTIFICIAL TEARS-HYPROMELLOSE DROPS 15 ML BTL RIGHT EYE SCH ×2 (07:43→20:52)
[2019-12-28] MEDS: TIMOLOL 0.5% OPHTH DROPS 5 ML BTL BOTH EYES SCH ×2 (07:43→20:52)
[2019-12-28] MEDS: BRIMONIDINE TARTRATE 0.2% DROPS 5 ML BTL BOTH EYES SCH ×2 (07:43→20:52)
[2019-12-28] MEDS: INSULIN ASPART (NovoLOG) 100 UNIT/ML VIAL SQ SCH ×3 (07:43→17:56)
[2019-12-28] MEDS: LACTATED RINGERS 1,000 ML IV SCH ×3 (07:49→19:08)
[2019-12-28 11:03] LABS: Glucose,Whole Blood 161 mg/dL (75-99)
[2019-12-28 16:57] LABS: Glucose,Whole Blood 159 mg/dL (75-99)
--- NOTE | 2019-12-28 16:59 | P.PN ---
Progress Note - Text Progress Note Date: 12/28/19 Chief Complaint: Altered mental status History of presenting complaint: This is a 69-year-old patient who follows with Dr. nunes from visiting physicians. Patient brought into the ER from [facility] for altered mental status. Patient has a known history of schizophrenia with a baseline cognitive impairment. Normally she is AO times stroke. Earlier this week showed changes to her medications including, gabapentin and [place] which was started on . And then she started having changes. These were then discontinued. When I saw the patient this morning, she is laying in bed mumbling, slight shaking of the hands, some tremor of the tongue, lethargic. Not able to give any further history. Admitted with-altered mental status felt to be delirium and metabolic encephalopathy. Questionable tardive dyskinesia. IV fluids started. Today-a bit more awake. Not eating. took her medications Review of systems-attempted for constitutional cardiovascular GI pulmonary Active Medications Amlodipine Besylate (Amlodipine 10 Mg Tab) 10 mg PO DAILY [facility] Last Admin: 12/28/19 07:32 Dose: 10 mg Documented by: Artificial Tears (Artificial Tears-Hypromellose Drops 15 Ml Btl) 1 drops RIGHT EYE BID [facility] Last Admin: 12/28/19 07:43 Dose: 1 drops Documented by: Aspirin (Aspirin 81 Mg) 81 mg PO DAILY [facility] Last Admin: 12/28/19 07:40 Dose: 81 mg Documented by: Benztropine Mesylate (Benztropine Mesylate 0.5 Mg Tab) 0.5 mg PO BID [facility] Last Admin: 12/28/19 07:42 Dose: 0.5 mg Documented by: Brimonidine Tartrate (Brimonidine Tartrate 0.2% Drops 5 Ml Btl) 1 drops BOTH EYES BID [facility] Last Admin: 12/28/19 07:43 Dose: 1 drops Documented by: Cholecalciferol (Cholecalciferol 1,000 Unit Tab) 2,000 unit PO DAILY [facility] Last Admin: 12/28/19 07:41 Dose: 2,000 unit Documented by: Clonidine HCl (Clonidine 0.1 Mg/24hr Patch) 1 patch TRANSDERM Q7D [facility] Last Admin: 12/27/19 21:53 Dose: 1 patch Documented by: Enoxaparin Sodium (Enoxaparin 40 Mg/0.4 Ml Syringe) 40 mg SQ DAILY [facility] Last Admin: 12/28/19 07:42 Dose: 40 mg Documented by: Lactated Ringer's (Lactated Ringers) 1,000 mls @ 150 mls/hr IV .[id number] [facility] Last Admin: 12/28/19 13:06 Dose: 150 mls/hr Documented by: Insulin Aspart (Insulin Aspart (Novolog) 100 Unit/Ml Vial) 0 unit SQ AC-TID [facility]; Protocol Last Admin: 12/28/19 13:05 Dose: 1 unit Documented by: Insulin Detemir (Insulin Detemir (Levemir) 100 Unit/Ml Syr) 20 unit SQ HS [facility] Last Admin: 12/27/19 21:53 Dose: 20 unit Documented by: Latanoprost (Latanoprost 0.005% Ophth Drops 2.5 Ml Btl) 1 drops BOTH EYES [facility] Last Admin: 12/27/19 20:20 Dose: Not Given Documented by: Levothyroxine Sodium (Levothyroxine 100 Mcg Tab) 100 mcg PO DAILY@0630 [facility] Last Admin: 12/28/19 07:41 Dose: 100 mcg Documented by: Lisinopril (Lisinopril 20 Mg Tab) 40 mg PO DAILY [facility] Last Admin: 12/28/19 07:36 Dose: 40 mg Documented by: Lorazepam (Lorazepam 2 Mg/Ml Inj) 1 mg IV Q4HR PRN PRN Reason: Anxiety Metoprolol Succinate (Metoprolol Succinate (Er) 50 Mg Tab.Er.24h) 50 mg PO DAILY [facility] Last Admin: 12/28/19 07:32 Dose: 50 mg Documented by: Naloxone HCl (Naloxone 0.4 Mg/Ml 1 Ml Vial) 0.2 mg IV Q2M PRN PRN Reason: Opioid Reversal Pantoprazole Sodium (Pantoprazole 40 Mg Tablet) 40 mg PO DAILY [facility] Last Admin: 12/28/19 07:40 Dose: 40 mg Documented by: Risperidone (Risperidone 1 Mg Tab) 1 mg PO HS [facility] Last Admin: 12/27/19 21:53 Dose: 1 mg Documented by: Timolol Maleate (Timolol 0.5% Ophth Drops 5 Ml Btl) 1 drops BOTH EYES BID [facility] Last Admin: 12/28/19 07:43 Dose: 1 drops Documented by: Physical examination: VITAL SIGNS: 98.6, 1:30, 18, 1 3575, 98% room air GENERAL: BMI 32.3, laying in bed bit more mumbling, some resting tremor of the arms and tongue tremor. EYES: Pupils equal. Conjunctiva normal. HEENT: External appearance of nose and ears normal, oral cavity dry, trembling of the tongue. NECK: JVD unable to assess masses not palpable. HEART: First and second heart sounds are normal; no edema. LUNGS: Respiratory rate normal; clear to auscultation. ABDOMEN: Soft, nontender, liver spleen not palpable, no masses palpable. PSYCH: Patient is lethargic NEUROLOGICAL: [Cranial nerves grossly intact; no facial asymmetry, slight tremor of the upper extremity and the tongue. Slight stiffness of the extremities Assessment: -Patient is presenting with altered mental status. At the baseline she is AO 2. Patient's currently noncommunicative. Making nonpurposeful sounds. She has some tremor of the tongue. Slight tremor of the limbs. She is not showing any classical manifestations of tardive dyskinesia. There is a temporal relationship with the patient having started, gabapentin and [place] on Sunday. Which have been discontinued. -Chronic schizophrenia -Hypothyroid. -Rule out hyperthyroidism -Diabetes mellitus type 2 chronically on insulin -Obesity BMI 32.3 -Metabolic encephalopathy and delirium from medications -Essential hypertension with urgency outpatient unable to take oral medications Plan: Continue current medication treatment plan. Continue with IV fluids. Accu- Cheks noted. Repeat labs.
[2019-12-28 20:10] LABS: Glucose,Whole Blood 143 mg/dL (75-99)
[2019-12-28] MEDS: INSULIN DETEMIR (LEVEMIR) 100 UNIT/ML SYR SQ SCH (20:51)
[2019-12-28] MEDS: LATANOPROST 0.005% OPHTH DROPS 2.5 ML BTL BOTH EYES SCH (20:52)
[2019-12-28] MEDS: risperiDONE 1 MG TAB PO SCH (20:52)
[2019-12-29] MEDS: LACTATED RINGERS 1,000 ML IV SCH ×3 (03:02→12:53)
[2019-12-29] MEDS: LEVOTHYROXINE 100 MCG TAB PO SCH (05:47)
[2019-12-29 07:09] LABS: Glucose,Whole Blood 117 mg/dL (75-99)
[2019-12-29] MEDS: INSULIN ASPART (NovoLOG) 100 UNIT/ML VIAL SQ SCH ×3 (08:56→17:32)
[2019-12-29] MEDS: amLODIPine 10 MG TAB PO SCH (09:10)
[2019-12-29] MEDS: ARTIFICIAL TEARS-HYPROMELLOSE DROPS 15 ML BTL RIGHT EYE SCH ×2 (09:10→20:24)
[2019-12-29] MEDS: CHOLECALCIFEROL 1,000 UNIT TAB PO SCH (09:11)
[2019-12-29] MEDS: BRIMONIDINE TARTRATE 0.2% DROPS 5 ML BTL BOTH EYES SCH ×2 (09:11→20:25)
[2019-12-29] MEDS: ASPIRIN 81 MG PO SCH (09:11)
[2019-12-29] MEDS: METOPROLOL SUCCINATE (ER) 50 MG TAB.ER.24H PO SCH (09:12)
[2019-12-29] MEDS: PANTOPRAZOLE 40 MG TABLET PO SCH (09:12)
[2019-12-29] MEDS: lisinopriL 20 MG TAB PO SCH (09:12)
[2019-12-29] MEDS: ENOXAPARIN 40 MG/0.4 ML SYRINGE SQ SCH (09:12)
[2019-12-29] MEDS: TIMOLOL 0.5% OPHTH DROPS 5 ML BTL BOTH EYES SCH ×2 (09:13→20:24)
[2019-12-29] MEDS: BENZTROPINE MESYLATE 0.5 MG TAB PO SCH ×2 (09:15→20:24)
[2019-12-29 09:25] LABS: African American GFR (CKD) 107.8 (60.0-200.0); Anion Gap 9.7 mmol/L (4.00-12.00); Carbon Dioxide 27.3 mmol/L (21.6-31.8); Potassium 3.6 mmol/L (3.5-5.5)
[2019-12-29 11:15] LABS: Glucose,Whole Blood 138 mg/dL (75-99)
--- NOTE | 2019-12-29 13:39 | P.PN ---
Progress Note - Text Progress Note Date: 12/29/19 Interval History: Patient was seen resting in bed and was directable and agreeable to speak with the mortgage underwriter. As per review of the patient's chart, the patient has a history of schizophrenia and baseline cognitive impairment. The patient is alert and oriented 2 at baseline as per discussion with the patient's operations research group manager. Patient is responsive at this time although is unable to provide any clear history of her own. She is not endorsing any suicidal or homicidal ideation, intention, and/or plan. She is not reporting any auditory or visual hallucinations. She is able to answer any "yes or no" fashion. She is otherwise not reporting any significant issues at this time. She denies any auditory or visual hallucinations. Mental Status Exam: General Appearance: Patient appears to be stated age, is alert, and cooperative. Behavior: She is lying in bed without any agitated behavior. Speech: Patient is verbal but minimal and conversation. At times she appears to be moaning and mumbling with no intelligible pattern. Mood/Affect: Mood is "okay." Affect is constricted but euthymic. Suicidality/Homicidality: Patient denies having any suicidal or homicidal ideation intent or plan. Perceptions: Patient denies any visual hallucinations and denies any auditory hallucinations Though content/process: At baseline, there is cognitive impairment. Memory and concentration: Alert and oriented to person and place. Concentration could not be assessed well as patient is unable to perform serial 7s or spell WORLD backwards. Judgment and insight: Poor at baseline Assessment Schizophrenia Cognitive impairment Plan: -Patient does NOT meet criteria for inpatient psychiatric hospitalization. -As per discussion with the patient's f[facility], the patient appears to have returned to baseline. -No medication changes are warranted at this time. -Psychiatry will sign off. If any questions, feel free to call. Reconsult if necessary.
[2019-12-29 17:19] LABS: Glucose,Whole Blood 112 mg/dL (75-99)
[2019-12-29 20:21] LABS: Glucose,Whole Blood 136 mg/dL (75-99)
[2019-12-29] MEDS: risperiDONE 1 MG TAB PO SCH (20:24)
[2019-12-29] MEDS: LATANOPROST 0.005% OPHTH DROPS 2.5 ML BTL BOTH EYES SCH (20:24)
--- NOTE | 2019-12-29 20:24 | P.PN ---
Progress Note - Text Progress Note Date: 12/29/19 Chief Complaint: Altered mental status History of presenting complaint: This is a 69-year-old patient who follows with Dr. nunes from visiting physicians. Patient brought into the ER from [facility] for altered mental status. Patient has a known history of schizophrenia with a baseline cognitive impairment. Normally she is AO times stroke. Earlier this week showed changes to her medications including, gabapentin and [place] which was started on . And then she started having changes. These were then discontinued. When I saw the patient this morning, she is laying in bed mumbling, slight shaking of the hands, some tremor of the tongue, lethargic. Not able to give any further history. Admitted with-altered mental status felt to be delirium and metabolic encephalopathy. Questionable tardive dyskinesia. IV fluids started. Dose of Risperdal was cutback from 4 mg down to 1 mg. Zoloft discontinued. Today- more awake today. Attempting to talk. Slight tremors present. Took her medications Review of systems-attempted for constitutional cardiovascular GI pulmonary Active Medications Amlodipine Besylate (Amlodipine 10 Mg Tab) 10 mg PO DAILY [facility] Last Admin: 12/29/19 09:10 Dose: 10 mg Documented by: Artificial Tears (Artificial Tears-Hypromellose Drops 15 Ml Btl) 1 drops RIGHT EYE BID [facility] Last Admin: 12/29/19 09:10 Dose: 1 drops Documented by: Aspirin (Aspirin 81 Mg) 81 mg PO DAILY [facility] Last Admin: 12/29/19 09:11 Dose: 81 mg Documented by: Benztropine Mesylate (Benztropine Mesylate 0.5 Mg Tab) 0.5 mg PO BID [facility] Last Admin: 12/29/19 09:15 Dose: 0.5 mg Documented by: Brimonidine Tartrate (Brimonidine Tartrate 0.2% Drops 5 Ml Btl) 1 drops BOTH EYES BID [facility] Last Admin: 12/29/19 09:11 Dose: 1 drops Documented by: Cholecalciferol (Cholecalciferol 1,000 Unit Tab) 2,000 unit PO DAILY [facility] Last Admin: 12/29/19 09:11 Dose: 2,000 unit Documented by: Clonidine HCl (Clonidine 0.1 Mg/24hr Patch) 1 patch TRANSDERM Q7D [facility] Last Admin: 12/27/19 21:53 Dose: 1 patch Documented by: Enoxaparin Sodium (Enoxaparin 40 Mg/0.4 Ml Syringe) 40 mg SQ DAILY [facility] Last Admin: 12/29/19 09:12 Dose: 40 mg Documented by: Lactated Ringer's (Lactated Ringers) 1,000 mls @ 75 mls/hr IV .[id number] [facility] Last Admin: 12/29/19 12:53 Dose: 75 mls/hr Documented by: Insulin Aspart (Insulin Aspart (Novolog) 100 Unit/Ml Vial) 0 unit SQ AC-TID [facility]; Protocol Last Admin: 12/29/19 17:32 Dose: Not Given Documented by: Insulin Detemir (Insulin Detemir (Levemir) 100 Unit/Ml Syr) 20 unit SQ HS [facility] Last Admin: 12/28/19 20:51 Dose: 20 unit Documented by: Latanoprost (Latanoprost 0.005% Ophth Drops 2.5 Ml Btl) 1 drops BOTH EYES [facility] Last Admin: 12/28/19 20:52 Dose: 1 drops Documented by: Levothyroxine Sodium (Levothyroxine 100 Mcg Tab) 100 mcg PO DAILY@0630 [facility] Last Admin: 12/29/19 05:47 Dose: 100 mcg Documented by: Lisinopril (Lisinopril 20 Mg Tab) 40 mg PO DAILY [facility] Last Admin: 12/29/19 09:12 Dose: 40 mg Documented by: Lorazepam (Lorazepam 2 Mg/Ml Inj) 1 mg IV Q4HR PRN PRN Reason: Anxiety Metoprolol Succinate (Metoprolol Succinate (Er) 50 Mg Tab.Er.24h) 50 mg PO DAILY [facility] Last Admin: 12/29/19 09:12 Dose: 50 mg Documented by: Naloxone HCl (Naloxone 0.4 Mg/Ml 1 Ml Vial) 0.2 mg IV Q2M PRN PRN Reason: Opioid Reversal Pantoprazole Sodium (Pantoprazole 40 Mg Tablet) 40 mg PO DAILY [facility] Last Admin: 12/29/19 09:12 Dose: 40 mg Documented by: Risperidone (Risperidone 1 Mg Tab) 1 mg PO HS [facility] Last Admin: 12/28/19 20:52 Dose: 1 mg Documented by: Timolol Maleate (Timolol 0.5% Ophth Drops 5 Ml Btl) 1 drops BOTH EYES BID [facility] Last Admin: 12/29/19 09:13 Dose: 1 drops Documented by: Physical examination: VITAL SIGNS: 98.8, 95, 18, 1 6984, 95% room air GENERAL: BMI 32.3, laying in bed bit bit more awake today. Some tremor still present. EYES: Pupils equal. Conjunctiva normal. HEENT: External appearance of nose and ears normal, oral cavity dry, trembling of the tongue. NECK: JVD unable to assess masses not palpable. HEART: First and second heart sounds are normal; no edema. LUNGS: Respiratory rate normal; clear to auscultation. ABDOMEN: Soft, nontender, liver spleen not palpable, no masses palpable. PSYCH: Unable to assess NEUROLOGICAL: [Cranial nerves grossly intact; no facial asymmetry, slight tremor of the upper extremity and the tongue. Slight stiffness of the extremities Assessment: -Patient is presenting with altered mental status. At the baseline she is AO 2. Patient's currently noncommunicative. Making nonpurposeful sounds. She has some tremor of the tongue. Slight tremor of the limbs. She is not showing any classical manifestations of tardive dyskinesia. There is a temporal relationship with the patient having started, gabapentin and [place] on Sunday. Which have been discontinued. -Chronic schizophrenia -Hypothyroid. -Rule out hyperthyroidism -Diabetes mellitus type 2 chronically on insulin -Obesity BMI 32.3 -Metabolic encephalopathy and delirium from medications -Essential hypertension with urgency Plan: Will DC the [place]. Add HERNA[place] inhibitor this evening. We'll have psychiatry review the patient.. Spoke to the nurse and encourage oral intake.
[2019-12-29] MEDS: LISINOPRIL-HCTZ 20-25 MG 1 EACH TAB PO SCH (20:54)
[2019-12-29] MEDS: INSULIN DETEMIR (LEVEMIR) 100 UNIT/ML SYR SQ SCH (21:37)
[2019-12-30] MEDS: LACTATED RINGERS 1,000 ML IV SCH ×2 (02:20→14:59)
[2019-12-30] MEDS: LEVOTHYROXINE 100 MCG TAB PO SCH (06:12)
[2019-12-30 07:12] LABS: Glucose,Whole Blood 112 mg/dL (75-99)
[2019-12-30] MEDS: INSULIN ASPART (NovoLOG) 100 UNIT/ML VIAL SQ SCH ×3 (07:16→17:13)
[2019-12-30] MEDS: ASPIRIN 81 MG PO SCH (09:21)
[2019-12-30] MEDS: CHOLECALCIFEROL 1,000 UNIT TAB PO SCH (09:21)
[2019-12-30] MEDS: METOPROLOL SUCCINATE (ER) 50 MG TAB.ER.24H PO SCH (09:21)
[2019-12-30] MEDS: amLODIPine 10 MG TAB PO SCH (09:21)
[2019-12-30] MEDS: ENOXAPARIN 40 MG/0.4 ML SYRINGE SQ SCH (09:21)
[2019-12-30] MEDS: LISINOPRIL-HCTZ 20-25 MG 1 EACH TAB PO SCH ×2 (09:33→20:59)
[2019-12-30] MEDS: PANTOPRAZOLE 40 MG TABLET PO SCH (09:34)
[2019-12-30] MEDS: BRIMONIDINE TARTRATE 0.2% DROPS 5 ML BTL BOTH EYES SCH ×2 (09:34→21:00)
[2019-12-30] MEDS: TIMOLOL 0.5% OPHTH DROPS 5 ML BTL BOTH EYES SCH ×2 (09:35→21:00)
[2019-12-30] MEDS: ARTIFICIAL TEARS-HYPROMELLOSE DROPS 15 ML BTL RIGHT EYE SCH ×2 (09:35→21:00)
[2019-12-30] MEDS: BENZTROPINE MESYLATE 0.5 MG TAB PO SCH (09:40)
[2019-12-30 11:21] LABS: Glucose,Whole Blood 88 mg/dL (75-99)
--- NOTE | 2019-12-30 11:32 | P.PN ---
Progress Note - Text Progress Note Date: 12/30/19 Interval History: Patient was seen resting in bed and was directable and agreeable to speak with the teletypewriter operator. As per review of the patient's chart, the patient has a history of schizophrenia and baseline cognitive impairment. The patient is alert and oriented 2 at baseline as per discussion with the patient's quality assurance group leader. Patient is more clear and coherent today. She continues to be somewhat confused and not at baseline as she is alert and oriented to self only. She initially believed she was in [facility] and was informed she is currently admitted for treatment in [facility]. She is expressing stomach pain as her primary complaint at this time. She is otherwise not reporting any suicidal or homicidal ideation or intention. She reports no auditory or visual hallucinations. Mental Status Exam: General Appearance: Patient appears to be stated age, is alert, and cooperative. Behavior: She is lying in bed without any agitated behavior. Speech: Patient is more verbal and fluent today but continues to have some fluctuating cognition. Mood/Affect: Mood is "my stomach hurts" Affect is congruent, malaised. Suicidality/Homicidality: Patient denies having any suicidal or homicidal ideation intent or plan. Perceptions: Patient denies any visual hallucinations and denies any auditory hallucinations Though content/process: At baseline, there is cognitive impairment. Fluctuating cognition today. Memory and concentration: Alert and oriented to person and place. Concentration could not be assessed well as patient is unable to perform serial 7s or spell WORLD backwards. Judgment and insight: Poor at baseline Assessment Schizophrenia Cognitive impairment Plan: -Patient does NOT meet criteria for inpatient psychiatric hospitalization. -Patient continues to display some fluctuating cognitition and is not at baseline currently -Delirium precautions recommended with patient including - avoiding use narcotics and RESEARCH PROGRAM ASSISTANT sedatives, limit anticholinergic medications when possible, frequent reorientation, minimize use of restraints, open window shades during the day and close them at night. -Agree with Risperdal 1 mg at bedtime at this time. -Will discontinue cogentin as this medication may contribute to delirium, and the patient is not exhibiting any need for this medication at this time. -Psychiatry will continue to follow.
[2019-12-30] MEDS ORDERED: METOPROLOL TARTRATE 25 MG TAB PO STA (13:33)
--- NOTE | 2019-12-30 15:56 | P.PN ---
Progress Note - Text Progress Note Date: 12/30/19 Chief Complaint: Altered mental status History of presenting complaint: This is a 69-year-old patient who follows with Dr. nunes from visiting physicians. Patient brought into the ER from [facility] for altered mental status. Patient has a known history of schizophrenia with a baseline cognitive impairment. Normally she is AO times stroke. Earlier this week showed changes to her medications including, gabapentin and [place] which was started on . And then she started having changes. These were then discontinued. When I saw the patient this morning, she is laying in bed mumbling, slight shaking of the hands, some tremor of the tongue, lethargic. Not able to give any further history. Admitted with-altered mental status felt to be delirium and metabolic encephalopathy. Questionable tardive dyskinesia. IV fluids started. Dose of Risperdal was cutback from 4 mg down to 1 mg. Zoloft discontinued. Today- continues to improve slowly. Able to eat better. Responding to questions though slowly. Review of systems-attempted for constitutional cardiovascular GI pulmonary Active Medications Amlodipine Besylate (Amlodipine 10 Mg Tab) 10 mg PO DAILY [facility] Last Admin: 12/30/19 09:21 Dose: 10 mg Documented by: Artificial Tears (Artificial Tears-Hypromellose Drops 15 Ml Btl) 1 drops RIGHT EYE BID [facility] Last Admin: 12/30/19 09:35 Dose: 1 drops Documented by: Aspirin (Aspirin 81 Mg) 81 mg PO DAILY [facility] Last Admin: 12/30/19 09:21 Dose: 81 mg Documented by: Brimonidine Tartrate (Brimonidine Tartrate 0.2% Drops 5 Ml Btl) 1 drops BOTH EYES BID [facility] Last Admin: 12/30/19 09:34 Dose: 1 drops Documented by: Cholecalciferol (Cholecalciferol 1,000 Unit Tab) 2,000 unit PO DAILY [facility] Last Admin: 12/30/19 09:21 Dose: 2,000 unit Documented by: Enoxaparin Sodium (Enoxaparin 40 Mg/0.4 Ml Syringe) 40 mg SQ DAILY [facility] Last Admin: 12/30/19 09:21 Dose: 40 mg Documented by: Lisinopril/HCTZ (Lisinopril-Hctz 20-25 Mg 1 Each Tab) 1 each PO BID [facility] Last Admin: 12/30/19 09:33 Dose: 1 each Documented by: Lactated Ringer's (Lactated Ringers) 1,000 mls @ 75 mls/hr IV .[id number] [facility] Last Admin: 12/30/19 14:59 Dose: 75 mls/hr Documented by: Insulin Aspart (Insulin Aspart (Novolog) 100 Unit/Ml Vial) 0 unit SQ AC-TID [facility]; Protocol Last Admin: 12/30/19 11:27 Dose: Not Given Documented by: Insulin Detemir (Insulin Detemir (Levemir) 100 Unit/Ml Syr) 30 unit SQ [facility] Last Admin: 12/29/19 21:37 Dose: 30 unit Documented by: Latanoprost (Latanoprost 0.005% Ophth Drops 2.5 Ml Btl) 1 drops BOTH EYES [facility] Last Admin: 12/29/19 20:24 Dose: 1 drops Documented by: Levothyroxine Sodium (Levothyroxine 100 Mcg Tab) 100 mcg PO DAILY@0630 [facility] Last Admin: 12/30/19 06:12 Dose: 100 mcg Documented by: Lorazepam (Lorazepam 2 Mg/Ml Inj) 1 mg IV Q4HR PRN PRN Reason: Anxiety Metoprolol Tartrate (Metoprolol Tartrate 50 Mg Tab) 100 mg PO BID [facility] Naloxone HCl (Naloxone 0.4 Mg/Ml 1 Ml Vial) 0.2 mg IV Q2M PRN PRN Reason: Opioid Reversal Pantoprazole Sodium (Pantoprazole 40 Mg Tablet) 40 mg PO DAILY [facility] Last Admin: 12/30/19 09:34 Dose: 40 mg Documented by: Risperidone (Risperidone 1 Mg Tab) 1 mg PO [facility] Last Admin: 12/29/19 20:24 Dose: 1 mg Documented by: Timolol Maleate (Timolol 0.5% Ophth Drops 5 Ml Btl) 1 drops BOTH EYES BID [facility] Last Admin: 12/30/19 09:35 Dose: 1 drops Documented by: Physical examination: VITAL SIGNS: 98.5, 88, 18, 177/81, 94% room air GENERAL:, laying in bed bit bit more awake Some tremor still present. EYES: Pupils equal. Conjunctiva normal. HEENT: External appearance of nose and ears normal, oral cavity dry, trembling of the tongue. NECK: JVD unable to assess masses not palpable. HEART: First and second heart sounds are normal; no edema. LUNGS: Respiratory rate normal; clear to auscultation. ABDOMEN: Soft, nontender, liver spleen not palpable, no masses palpable. PSYCH: Unable to assess NEUROLOGICAL: [Cranial nerves grossly intact; no facial asymmetry, slight tremor of the upper extremity and the tongue. Answering questions, speech slow INVESTIGATIONS, reviewed in the clinical context: White count 11.8 hemoglobin 11 sodium 129 potassium 4.2 creatinine 0.59 AST 183 ALT 223 TSH 9.63 T4 0.9 Assessment: -Patient is presenting with altered mental status. At the baseline she is AO 2. Patient's currently noncommunicative. Making nonpurposeful sounds. She has some tremor of the tongue. Slight tremor of the limbs. She is not showing any classical manifestations of tardive dyskinesia. There is a temporal relationship with the patient having started, gabapentin and [place] on Sunday. Which have been discontinued. -Chronic schizophrenia -Hypothyroid. -Diabetes mellitus type 2 chronically on insulin -Obesity BMI 32.3 -Metabolic encephalopathy and delirium from medications-improving -Essential hypertension with urgency -uncontrolled Plan: Lopressor be increased to 100 mg twice a day. Cogentin was discontinued by psychiatry. Encourage oral intake. Repeat labs
[2019-12-30 17:14] LABS: Glucose,Whole Blood 105 mg/dL (75-99)
[2019-12-30 19:14] LABS: Hepatitis A Antibody IgM Non-Reactive (Non-Reactive); Hepatitis B Core IgM Non-Reactive (Non-Reactive); Hepatitis B Surface Antigen Non-Reactive (Non-Reactive); Hepatitis C IgG Antibody Reactive (Non-Reactive)
[2019-12-30 20:26] LABS: Glucose,Whole Blood 115 mg/dL (75-99)
[2019-12-30] MEDS: METOPROLOL TARTRATE 50 MG TAB PO SCH (20:59)
[2019-12-30] MEDS: INSULIN DETEMIR (LEVEMIR) 100 UNIT/ML SYR SQ SCH (21:00)
[2019-12-30] MEDS: LATANOPROST 0.005% OPHTH DROPS 2.5 ML BTL BOTH EYES SCH (21:00)
[2019-12-30] MEDS: risperiDONE 1 MG TAB PO SCH (21:00)
[2019-12-31] MEDS: LEVOTHYROXINE 100 MCG TAB PO SCH (05:51)
[2019-12-31] MEDS: LACTATED RINGERS 1,000 ML IV SCH (05:51)
[2019-12-31 06:12] VITALS: RESP 18
[2019-12-31 07:02] LABS: Glucose,Whole Blood 134 mg/dL (75-99)
[2019-12-31] MEDS: ENOXAPARIN 40 MG/0.4 ML SYRINGE SQ SCH (08:21)
[2019-12-31] MEDS: INSULIN ASPART (NovoLOG) 100 UNIT/ML VIAL SQ SCH ×2 (08:21→11:33)
[2019-12-31] MEDS: amLODIPine 10 MG TAB PO SCH (08:22)
[2019-12-31] MEDS: CHOLECALCIFEROL 1,000 UNIT TAB PO SCH (08:22)
[2019-12-31] MEDS: LISINOPRIL-HCTZ 20-25 MG 1 EACH TAB PO SCH (08:22)
[2019-12-31] MEDS: ASPIRIN 81 MG PO SCH (08:22)
[2019-12-31] MEDS: BRIMONIDINE TARTRATE 0.2% DROPS 5 ML BTL BOTH EYES SCH (08:22)
[2019-12-31] MEDS: PANTOPRAZOLE 40 MG TABLET PO SCH (08:22)
[2019-12-31] MEDS: METOPROLOL TARTRATE 50 MG TAB PO SCH (08:22)
[2019-12-31] MEDS: TIMOLOL 0.5% OPHTH DROPS 5 ML BTL BOTH EYES SCH (08:23)
[2019-12-31] MEDS: ARTIFICIAL TEARS-HYPROMELLOSE DROPS 15 ML BTL RIGHT EYE SCH (08:23)
[2019-12-31 10:13] LABS: African American GFR (CKD) 102.5 (60.0-200.0); Albumin 3.4 g/dL (3.80-4.90); Albumin/Globulin Ratio 1.55 (1.60-3.17); Anion Gap 7.3 mmol/L (4.00-12.00); BUN/Creat Ratio 12.86 Ratio (12.00-20.00); Calcium 8.4 mg/dL (8.7-10.3); Carbon Dioxide 28.7 mmol/L (21.6-31.8); Globulin 2.2 g/dL (1.6-3.3); Non-African American GFR(CKD) 88.4 (60.0-200.0); Potassium 3.9 mmol/L (3.5-5.5); Total Bilirubin 0.6 mg/dL (0.2-1.2); Total Protein 5.6 g/dL (6.2-8.2)
[2019-12-31 11:28] LABS: Glucose,Whole Blood 118 mg/dL (75-99)
[2019-12-31 11:54] VITALS: BP 109/53; PULSE 81; TEMP 98.3
--- NOTE | 2019-12-31 13:27 | P.PN ---
Progress Note - Text Progress Note Date: 12/31/19 Interval History: Patient was seen resting in bed and was directable and agreeable to speak with the film writer. As per review of the patient's chart, the patient has a history of schizophrenia and baseline cognitive impairment. The patient is alert and oriented 2 at baseline as per discussion with the patient's supervisor wire rope fabrication. Patient is currently awake and although slow to respond she is alert and oriented to person and place. She is pleasant and not endorsing any suicidal or homicidal ideation, intention, and/or plan. She reports no auditory or visual hallucinations. She does not verbalize any delusions. Mental Status Exam: General Appearance: Patient appears to be stated age, is alert, and cooperative. Behavior: She is lying in bed without any agitated behavior. Speech: Patient is more verbal and fluent today. More spontaneous. Mood/Affect: Mood is "okay." Affect is euthymic but constricted. Suicidality/Homicidality: Patient denies having any suicidal or homicidal ideation intent or plan. Perceptions: Patient denies any visual hallucinations and denies any auditory hallucinations Though content/process: At baseline, there is cognitive impairment. Memory and concentration: Alert and oriented to person and place. Patient is unable to perform serial 7s or spell WORLD backwards. Judgment and insight: Poor at baseline Assessment Schizophrenia Cognitive impairment Plan: -Patient does NOT meet criteria for inpatient psychiatric hospitalization. -Delirium precautions recommended with patient including - avoiding use narcotics and FACILITY SECURITY OFFICER sedatives, limit anticholinergic medications when possible, frequent reorientation, minimize use of restraints, open window shades during the day and close them at night. -No medication changes recommended at this time. -Patient appears to have returned to baseline. -Psychiatry will sign off at this time. If any questions or concerns feel free to re-consult or call.
--- NOTE | 2020-01-02 00:49 | P.DS ---
Providers Date of admission: 12/26/19 17:22 Expected date of discharge: 12/31/19 Attending physician: Elvis Whiting Consults: 12/26/19 17:22 Consult Physician Routine Consulting Provider: Columba Chapa Consult Reason/Comments: schizophrenia, delirium Do you want consulting provider notified?: Yes Primary care physician: Rohan [facility] Course: Chief Complaint: Altered mental status History of presenting complaint: This is a 69-year-old patient who follows with Dr. nunes from visiting physicians. Patient brought into the ER from [facility] for altered mental status. Patient has a known history of schizophrenia with a baseline cognitive impairment. Normally she is AO times stroke. Earlier this week showed changes to her medications including, gabapentin and [place] which was started on . And then she started having changes. These were then discontinued. When I saw the patient this morning, she is laying in bed mumbling, slight shaking of the hands, some tremor of the tongue, lethargic. Not able to give any further history. Admitted with-altered mental status felt to be delirium and metabolic encephalopathy. . IV fluids started. Dose of Risperdal was cutback from 4 mg down to 1 mg. Zoloft discontinued. Cogentin was also discontinued. Today-patient much improvement the time of discharge. Tolerating a diet. Communicating better. Answering questions better. Patient has underlying schizophrenia. Discussed with psychiatry. Medications were added for blood pressure. Blood pressure better controlled. Discussion and discharge planning more than 35 minutes Consultation: Dr. Starkey from psychiatry Physical examination: VITAL SIGNS: 98.3, 81, 18, 109/53, 97% room air GENERAL:, laying in bed - more awake . EYES: Pupils equal. Conjunctiva normal. HEENT: External appearance of nose and ears normal, oral cavity dry, trembling of the tongue. NECK: JVD unable to assess masses not palpable. HEART: First and second heart sounds are normal; no edema. LUNGS: Respiratory rate normal; clear to auscultation. ABDOMEN: Soft, nontender, liver spleen not palpable, no masses palpable. PSYCH: Answering simple questions NEUROLOGICAL: slight tremor of the upper extremity and the tongue. INVESTIGATIONS, reviewed in the clinical context: Sodium 131 potassium 3.9 AST 94 ALT 178 White count 11.8 hemoglobin 11 sodium 129 potassium 4.2 creatinine 0.59 AST 183 ALT 223 TSH 9.63 T4 0.9 Assessment: -Acute metabolic encephalopathy and delirium from medications, POA -Chronic schizophrenia -Hypothyroid. -Diabetes mellitus type 2 chronically on insulin -Obesity BMI 32.3 -Essential hypertension with urgency -uncontrolled, POA Disposition: Home Patient Condition at Discharge: Stable Plan - Discharge Summary New Discharge Prescriptions: New Metoprolol Tartrate [Lopressor] 100 mg PO BID #60 tab risperiDONE [RisperDAL] 1 mg PO HS #30 tab Levothyroxine Sodium [Synthroid] 100 mcg PO DAILY@0630 #30 tab Lisinopril-Hctz 20-25 mg [Zestoretic 20-25] 1 each PO BID #60 tab Continue Latanoprost [Xalatan 0.005%] 1 drop BOTH EYES HS INSULIN ASPART (NovoLOG) [NovoLOG (formulary)] See Protocol SQ AC-TID Aspirin EC [Ecotrin Low Dose] 81 mg PO DAILY Carboxymethylcellulose Sodium [Refresh Tears] 1 drop RIGHT EYE BID Omeprazole 40 mg PO DAILY Ferrous Sulfate [Iron (65 MG Elemental)] 325 mg PO HS amLODIPine [Norvasc] 10 mg PO DAILY Brimonidine Tartrate [Alphagan P 0.2% Ophth Soln] 1 drop BOTH EYES BID Changed Insulin Detemir [Levemir Flextouch] 30 units SQ HS #0 INSULIN ASPART (NovoLOG) [NovoLOG (formulary)] 4 unit SQ AC-TID #0 Discontinued INSULIN ASPART (NovoLOG) [NovoLOG] 18 unit SQ AC-SUPPER Sertraline [Zoloft] 200 mg PO HS Benztropine Mesylate [Cogentin] 0.5 mg PO BID lisinopriL 40 mg PO DAILY Metoprolol Succinate (ER) [Toprol Xl] 50 mg PO DAILY Levothyroxine Sodium [Levo-T] 175 mcg PO DAILY Mirtazapine 15 mg PO HS hydroCHLOROthiazide [Hydrodiuril] 50 mg PO DAILY risperiDONE [RisperDAL] 4 mg PO HS No Action Timolol [Betimol 0.5% Ophth Soln] 1 drop BOTH EYES BID Cholecalciferol [Vitamin D3] 2,000 unit PO DAILY Discharge Medication List Aspirin EC [Ecotrin Low Dose] 81 mg PO DAILY 05/22/16 [History] Carboxymethylcellulose Sodium [Refresh Tears] 1 drop RIGHT EYE BID 05/22/16 [History] Cholecalciferol [Vitamin D3] 2,000 unit PO DAILY 05/22/16 [History] INSULIN ASPART (NovoLOG) [NovoLOG (formulary)] See Protocol SQ AC-TID 05/22/16 [History] Latanoprost [Xalatan 0.005%] 1 drop BOTH EYES HS 05/22/16 [History] Timolol [Betimol 0.5% Ophth Soln] 1 drop BOTH EYES BID 05/22/16 [History] Brimonidine Tartrate [Alphagan P 0.2% Ophth Soln] 1 drop BOTH EYES BID 12/26/19 [History] Ferrous Sulfate [Iron (65 MG Elemental)] 325 mg PO HS 12/26/19 [History] Omeprazole 40 mg PO DAILY 12/26/19 [History] amLODIPine [Norvasc] 10 mg PO DAILY 12/26/19 [History] INSULIN ASPART (NovoLOG) [NovoLOG (formulary)] 4 unit SQ AC-TID #0 12/31/19 [Rx] Insulin Detemir [Levemir Flextouch] 30 units SQ HS #0 12/31/19 [Rx] Levothyroxine Sodium [Synthroid] 100 mcg PO DAILY@0630 #30 tab 12/31/19 [Rx] Lisinopril-Hctz 20-25 mg [Zestoretic 20-25] 1 each PO BID #60 tab 12/31/19 [Rx] Metoprolol Tartrate [Lopressor] 100 mg PO BID #60 tab 12/31/19 [Rx] risperiDONE [RisperDAL] 1 mg PO HS #30 tab 12/31/19 [Rx] Follow up Appointment(s)/Referral(s): psychiatry, [Other] - 1 Week Rohan Glass MD [Primary Care Provider] - 1-2 days (Please call and make your appointment.) Patient Instructions/Handouts: Metoprolol (By mouth), Levothyroxine (By mouth), Risperidone (By mouth), Lisinopril/Hydrochlorothiazide (By mouth), Altered Mental Status (GEN) Activity/Diet/Wound Care/Special Instructions: dc if ok with psychiatry Discharge Disposition: TRANSFER TO SNF/ECF
== END 2019-12-31 17:18 | DRG 93 ==
LOC: EC 14:16 → 3SCARD 17:22 → 6NMEDSUR 17:53
PROVIDERS: ADMIT Hospitalist; ATTEND Hospitalist
DX: G92 Toxic encephalopathy (principal); T42.6X5A Adverse effect of other antiepileptic and sedative-hypnotic drugs, initial encounter; T40.2X5A Adverse effect of other opioids, initial encounter; T36.1X5A Adverse effect of cephalosporins and other beta-lactam antibiotics, initial encounter; Z86.19 Personal history of other infectious and parasitic diseases; D64.9 Anemia, unspecified; D72.829 Elevated white blood cell count, unspecified; E03.9 Hypothyroidism, unspecified; E11.9 Type 2 diabetes mellitus without complications; E66.9 Obesity, unspecified; F20.9 Schizophrenia, unspecified; F41.9 Anxiety disorder, unspecified; F79 Unspecified intellectual disabilities; I10 Essential (primary) hypertension; I16.0 Hypertensive urgency; Z68.32 Body mass index [BMI] 32.0-32.9, adult; Z79.4 Long term (current) use of insulin; Z79.82 Long term (current) use of aspirin; Z79.890 Hormone replacement therapy; Z79.899 Other long term (current) drug therapy; Z90.710 Acquired absence of both cervix and uterus; G24.01 Drug induced subacute dyskinesia; Z88.0 Allergy status to penicillin
CPT/HCPCS: 36415; 70450; 71046; 76705; 80048; 80053; 80074; 80306; 81003; 82140; 82550; 84439; 84443; 85025; 85610; 85730; 93005; 96361; 96374; 96375; 99285

== ENCOUNTER 2020-03-20 11:22 | Emergency (ER) | payer MEDICARE, OTHER ==
[2020-03-20 11:36] VITALS: RESP 18
[2020-03-20 12:45] LABS: Basophils # (A) 0.1 k/uL (0-0.2); Basophils % (A) 1 %; Eosinophils # (A) 0.5 k/uL (0-0.7); Eosinophils % (A) 3 %; HCT 36.8 % (34.0-46.0); HGB 12.1 gm/dL (11.4-16.0); Lymphocytes # (A) 2.7 k/uL (1.0-4.8); Lymphocytes % (A) 20 %; MCH 28.5 pg (25.0-35.0); MCHC 32.9 g/dL (31.0-37.0); MCV 86.6 fL (80.0-100.0); Mean Platelet Volume 9.4; Monocytes # (A) 0.7 k/uL (0-1.0); Monocytes % (A) 5 %; Neutrophils # (A) 9.5 k/uL (1.3-7.7); Neutrophils % (A) 69 %; Platelet Count 173 k/uL (150-450); RBC 4.25 m/uL (3.80-5.40); WBC 13.8 k/uL (3.8-10.6)
--- NOTE | 2020-03-20 12:58 | ED ---
General Adult HPI - General Chief complaint: Psychiatric Symptoms Stated complaint: psych Time Seen by Provider: 03/20/20 11:35 Source: patient, EMS, RN notes reviewed Mode of arrival: EMS Limitations: no limitations - History of Present Illness Initial comments: 69-year-old female presented to the emergency Department from [facility] home for psychiatric evaluation. Patient has had some aggressive behavior and the facility this happen in the past which have changed her medications around. Patient has no complaints other than right hand pain. Patient's does have underlying cognitive impairment. Patient's had no recent fevers chills no cough congestion abdominal pain - Related Data Home Medications Medication Instructions Recorded Confirmed Aspirin EC [Ecotrin Low Dose] 81 mg PO DAILY 05/22/16 03/20/20 Carboxymethylcellulose Sodium 1 drop RIGHT EYE BID 05/22/16 03/20/20 [Refresh Tears] Cholecalciferol [Vitamin D3] 2,000 unit PO DAILY 05/22/16 03/20/20 INSULIN ASPART (NovoLOG) [NovoLOG See Protocol SQ AC-TID 05/22/16 03/20/20 (formulary)] Latanoprost [Xalatan 0.005%] 1 drop BOTH EYES HS 05/22/16 03/20/20 Timolol [Betimol 0.5% Ophth Soln] 1 drop BOTH EYES BID 05/22/16 03/20/20 Brimonidine Tartrate [Alphagan P 1 drop BOTH EYES BID 12/26/19 03/20/20 0.2% Ophth Soln] Ferrous Sulfate [Iron (65 MG 325 mg PO DAILY 12/26/19 03/20/20 Elemental)] Omeprazole 40 mg PO AC-BRKFST 12/26/19 03/20/20 amLODIPine [Norvasc] 10 mg PO DAILY 12/26/19 03/20/20 Acetaminophen Tab [Tylenol] 500 mg PO DAILY PRN 03/20/20 03/20/20 Ammonium Lactate Lotion 1 applic TOPICAL DAILY 03/20/20 03/20/20 [Lac-Hydrin 12% Lotion] Atorvastatin [Lipitor] 10 mg PO HS 03/20/20 03/20/20 Doxycycline Hyclate [Vibramycin] 100 mg PO BID 03/20/20 03/20/20 Folic Acid 0.4 mg PO DAILY 03/20/20 03/20/20 Gabapentin [Neurontin] 100 mg PO DAILY 03/20/20 03/20/20 HYDROcodone/APAP 5-325MG [[place] 1 tab PO TID PRN 03/20/20 03/20/20 5-325] Ibuprofen 200 mg PO DAILY PRN 03/20/20 03/20/20 Insulin Detemir [Levemir Flextouch] 45 units SQ HS 03/20/20 03/20/20 Lactulose 20 gm PO DAILY PRN 03/20/20 03/20/20 Levothyroxine Sodium [Synthroid] 175 mcg PO DAILY 03/20/20 03/20/20 Loperamide HCl [Imodium A-D] 2 mg PO DAILY PRN 03/20/20 03/20/20 Melatonin 5 mg PO HS 03/20/20 03/20/20 Menthol [Biofreeze] 1 applic TOPICAL Q4H PRN 03/20/20 03/20/20 Mirabegron [Myrbetriq] 25 mg PO DAILY 03/20/20 03/20/20 Mirtazapine [Remeron] 15 mg PO HS 03/20/20 03/20/20 OLANZapine [ZyPREXA] 10 mg PO HS 03/20/20 03/20/20 bisacodyL [Bisacodyl] 10 mg RECTAL DAILY PRN 03/20/20 03/20/20 cycloSPORINE 0.05% OPHTH SOLN 1 drop BOTH EYES BID 03/20/20 03/20/20 [Restasis] diphenhydrAMINE [Benadryl] 25 mg PO DAILY PRN 03/20/20 03/20/20 hydrOXYzine pamoate [hydrOXYzine 25 mg PO TID 03/20/20 03/20/20 PAMOATE] Previous Rx's Medication Instructions Recorded Lisinopril-Hctz 20-25 mg 1 each PO BID #60 tab 12/31/19 [Zestoretic 20-25] Metoprolol Tartrate [Lopressor] 100 mg PO BID #60 tab 12/31/19 Allergies Allergy/AdvReac Type Severity Reaction Status Date / Time Penicillins Allergy Unknown Verified 03/20/20 12:44 Review of Systems ROS Statement: Those systems with pertinent positive or pertinent negative responses have been documented in the HPI. ROS Other: All systems not noted in ROS Statement are negative. Past Medical History Past Medical History: Diabetes Mellitus Additional Past Medical History / Comment(s): hep b, mental retardation History of Any Multi-Drug Resistant Organisms: None Reported Past Surgical History: Hysterectomy Past Psychological History: Schizophrenia Smoking Status: Never smoker Past Alcohol Use History: None Reported Past Drug Use History: None Reported - Past Family History Father Family Medical History: Unable to Obtain General Exam Limitations: altered mental status (Cognitive impairment) General appearance: alert, in no apparent distress Head exam: Present: atraumatic, normocephalic, normal inspection Eye exam: Present: normal appearance, PERRL, EOMI. Absent: scleral icterus, conjunctival injection, periorbital swelling ENT exam: Present: normal exam, normal oropharynx, mucous membranes moist Neck exam: Present: normal inspection, full ROM. Absent: tenderness, meningismus, lymphadenopathy Respiratory exam: Present: normal lung sounds bilaterally. Absent: respiratory distress, wheezes, rales, rhonchi, stridor Cardiovascular Exam: Present: regular rate, normal rhythm, normal heart sounds. Absent: systolic murmur, diastolic murmur, rubs, gallop, clicks GI/Abdominal exam: Present: soft, normal bowel sounds. Absent: distended, tenderness, guarding, rebound, rigid Neurological exam: Present: alert Psychiatric exam: Present: normal affect, normal mood Skin exam: Present: warm, dry, intact, normal color. Absent: rash Course Vital Signs 03/20/20 11:26 Temperature 98.1 F Pulse Rate 77 Respiratory 18 Rate Blood Pressure 110/80 O2 Sat by Pulse 98 Oximetry Medical Decision Making - Medical Decision Making Patient was evaluated by EPS patient is not suicidal or homicidal she has no behavioral issues here. Patient does state that she does not like to live at her current facility guardian was contacted regarding this and will follow-up - Lab Data Result diagrams: 03/20/20 12:38 03/20/20 12:38 Lab Results 03/20/20 03/20/20 03/20/20 Range/Units 12:38 12:38 12:45 WBC 13.8 H (3.8-10.6) k/uL RBC 4.25 (3.80-5.40) m/uL Hgb 12.1 (11.4-16.0) gm/dL Hct 36.8 (34.0-46.0) % MCV 86.6 (80.0-100.0) fL MCH 28.5 (25.0-35.0) pg MCHC 32.9 (31.0-37.0) g/dL RDW 14.0 (11.5-15.5) % Plt Count 173 (150-450) k/uL MPV 9.4 Neutrophils % 69 % Lymphocytes % 20 % Monocytes % 5 % Eosinophils % 3 % Basophils % 1 % Neutrophils # 9.5 H (1.3-7.7) k/uL Lymphocytes # 2.7 (1.0-4.8) k/uL Monocytes # 0.7 (0-1.0) k/uL Eosinophils # 0.5 (0-0.7) k/uL Basophils # 0.1 (0-0.2) k/uL Sodium 138 (137-145) mmol/L Potassium 4.4 (3.5-5.1) mmol/L Chloride 101 (98-107) mmol/L Carbon Dioxide 29 (22-30) mmol/L Anion Gap 8 mmol/L BUN 20 H (7-17) mg/dL Creatinine 0.63 (0.52-1.04) mg/dL Est GFR (CKD-EPI)AfAm >90 (>60 ml/min/1.73 sqM) Est GFR (CKD-EPI)NonAf >90 (>60 ml/min/1.73 sqM) Glucose 157 H (74-99) mg/dL Calcium 8.8 (8.4-10.2) mg/dL Total Bilirubin 0.5 (0.2-1.3) mg/dL AST 20 (14-36) U/L ALT 18 (4-34) U/L Alkaline Phosphatase 94 (38-126) U/L Total Protein 7.4 (6.3-8.2) g/dL Albumin 3.8 (3.5-5.0) g/dL Coronavirus (PCR) Not Detected (Not Detectd) Disposition Clinical Impression: Cognitive impairment, Mood disorder Disposition: HOME SELF-CARE Condition: Stable Additional Instructions: Please return to the Emergency Department if symptoms worsen or any other concerns. Is patient prescribed a controlled substance at d/c from ED?: No Referrals: Rohan Glass MD [Primary Care Provider] - 1-2 days Time of Disposition: 14:07
[2020-03-20 13:01] LABS: ALT 18 U/L (4-34); AST 20 U/L (14-36); African American GFR (CKD) >90 (>60 ml/min/1.73 sqM); Albumin 3.8 g/dL (3.5-5.0); Alkaline Phosphatase 94 U/L (38-126); Anion Gap 8 mmol/L; Blood Urea Nitrogen 20 mg/dL (7-17); Calcium 8.8 mg/dL (8.4-10.2); Carbon Dioxide 29 mmol/L (22-30); Chloride 101 mmol/L (98-107); Glucose 157 mg/dL (74-99); Non-African American GFR(CKD) >90 (>60 ml/min/1.73 sqM); Potassium 4.4 mmol/L (3.5-5.1); Sodium 138 mmol/L (137-145); Total Bilirubin 0.5 mg/dL (0.2-1.3); Total Protein 7.4 g/dL (6.3-8.2)
--- NOTE | 2020-03-20 13:03 | XR ---
EXAMINATION TYPE: XR chest 1V DATE OF EXAM: 03/20/2020 COMPARISON: 12/26/2019 INDICATION: Pain TECHNIQUE: Single frontal view of the chest is obtained. FINDINGS: The heart size is normal. The pulmonary vasculature is normal. There is elevation of the right diaphragm. IMPRESSION: 1. No acute pulmonary process.
--- NOTE | 2020-03-20 13:04 | XR ---
EXAMINATION TYPE: XR hand complete RT DATE OF EXAM: 03/20/2020 COMPARISON: None HISTORY: Pain TECHNIQUE: Three-view right hand FINDINGS: No acute fracture or dislocation is evident. Soft tissues are normal. There are advanced degenerative changes at the distal interphalangeal joint space of the ring finger. Correlate with location of the patient's pain. Avulsion is not excluded but considered less likely. IMPRESSION: 1. Advanced degenerative joint changes distal interphalangeal joint space ring finger. An avulsion f rom the dorsal distal phalanx proximal portion is not entirely excluded. Correlate with location of p atient's pain and history.
[2020-03-20 14:34] VITALS: BP 112/84; PULSE 88; TEMP 98.4
[2020-03-20 14:57] LABS: Appearance,Urine Clear (Clear); Bilirubin,Urine Negative (Negative); Blood,Urine Negative (Negative); Color,Urine Yellow; Glucose,Urine (UA) 2+ (Negative); Ketones,Urine Negative (Negative); Leukocyte Esterase,Urine Negative (Negative); Nitrite,Urine Negative (Negative); PH, Urine 6.5 (5.0-8.0); Protein,Urine Negative (Negative); Specific Gravity,Urine 1.017 (1.001-1.035); Urobilinogen,Urine <2.0 mg/dL (<2.0)
[2020-03-20 15:02] LABS: Amphetamine Screen,Urine Not Detected (NotDetected); Barbiturate Screen,Urine Not Detected (NotDetected); Benzodiazepines Screen,Urine Not Detected (NotDetected); Cocaine Screen,Urine Not Detected (NotDetected); Methadone Screen, Urine Not Detected (NotDetected); Opiate Screen,Urine Detected (NotDetected); Oxycodone Screen, Urine Not Detected (NotDetected); Phencyclidine Screen,Urine Not Detected (NotDetected); Tricyclic Antidepressant,Urine Not Detected (NotDetected); Urn Cannabinoid Scrn Not Detected (NotDetected)
== END 2020-03-20 14:34 | disposition home or self-care (01) ==
LOC: EC 11:22
DX: F39 Unspecified mood [affective] disorder (principal); F79 Unspecified intellectual disabilities; M79.641 Pain in right hand; E11.9 Type 2 diabetes mellitus without complications; F20.9 Schizophrenia, unspecified; Z20.822 Contact with and (suspected) exposure to COVID-19; Z79.4 Long term (current) use of insulin; Z79.899 Other long term (current) drug therapy; Z88.0 Allergy status to penicillin; Z90.710 Acquired absence of both cervix and uterus
CPT/HCPCS: 36415; 71045; 80053; 80306; 81003; 82075; 85025; 87635; 99285

== ENCOUNTER 2021-03-29 06:01 | Emergency (ER) | payer MEDICARE, OTHER ==
[~2021-03-29 06:01] MED LIST: EPINEPHrine 10 ML SYRINGE (0.1 MG/ML) ONE
--- NOTE | 2021-03-29 07:24 | ED ---
CPR HPI - General Stated Complaint: Cardiac Arrest Time Seen by Provider: 03/29/21 06:18 Limitations: physical limitation (Patient unresponsive and intubated) - History of Present Illness Initial Comments: Patient is 70-year-old woman brought from [facility] home. EMS was called this morning when the patient was found unresponsive. The patient had been checked approximately 30-60 minutes prior to that. On EMS arrival the patient had no respirations. They placed her on monitor patient was asystolic. ACLS protocol had been started and the patient was then intubated. The patient had chest compressions. IV had been started. Total of 4 mg of epinephrine had been given. The patient was in asystole for the 27 minutes that the patient had a monitored. Patient of course not able to give any history. MD Complaint: found unresponsive Onset/Timin -: minute(s) Place: home Bystander CPR Performed: No AED Applied by Bystander/Marketing Intelligence Manager: No Shock Advised: No Initial Findings in the Field: no respirations, no pulse, systole (Asystole) ROSC in the Field: No Associated Injuries: No Treatments Prior to Arrival: intubation, chest compressions, epinephrine mgs # (4) - Related Data Home Medications Medication Instructions Recorded Confirmed Aspirin EC [Ecotrin Low Dose] 81 mg PO DAILY 05/22/16 03/20/20 Carboxymethylcellulose Sodium 1 drop RIGHT EYE BID 05/22/16 03/20/20 [Refresh Tears] Cholecalciferol [Vitamin D3] 2,000 unit PO DAILY 05/22/16 03/20/20 INSULIN ASPART (NovoLOG) [NovoLOG See Protocol SQ AC-TID 05/22/16 03/20/20 (formulary)] Latanoprost [Xalatan 0.005%] 1 drop BOTH EYES HS 05/22/16 03/20/20 Timolol [Betimol 0.5% Ophth Soln] 1 drop BOTH EYES BID 05/22/16 03/20/20 Brimonidine Tartrate [Alphagan P 1 drop BOTH EYES BID 12/26/19 03/20/20 0.2% Ophth Soln] Ferrous Sulfate [Iron (65 MG 325 mg PO DAILY 12/26/19 03/20/20 Elemental)] Omeprazole 40 mg PO AC-BRKFST 12/26/19 03/20/20 amLODIPine [Norvasc] 10 mg PO DAILY 12/26/19 03/20/20 Acetaminophen Tab [Tylenol] 500 mg PO DAILY PRN 03/20/20 03/20/20 Ammonium Lactate Lotion 1 applic TOPICAL DAILY 03/20/20 03/20/20 [Lac-Hydrin 12% Lotion] Atorvastatin [Lipitor] 10 mg PO HS 03/20/20 03/20/20 Doxycycline Hyclate [Vibramycin] 100 mg PO BID 03/20/20 03/20/20 Folic Acid 0.4 mg PO DAILY 03/20/20 03/20/20 Gabapentin [Neurontin] 100 mg PO DAILY 03/20/20 03/20/20 HYDROcodone/APAP 5-325MG [[place] 1 tab PO TID PRN 03/20/20 03/20/20 5-325] Ibuprofen 200 mg PO DAILY PRN 03/20/20 03/20/20 Insulin Detemir [Levemir Flextouch 45 units SQ HS 03/20/20 03/20/20 Pen] Lactulose 20 gm PO DAILY PRN 03/20/20 03/20/20 Levothyroxine Sodium [Synthroid] 175 mcg PO DAILY 03/20/20 03/20/20 Loperamide HCl [Imodium A-D] 2 mg PO DAILY PRN 03/20/20 03/20/20 Melatonin 5 mg PO HS 03/20/20 03/20/20 Menthol [Biofreeze] 1 applic TOPICAL Q4H PRN 03/20/20 03/20/20 Mirabegron [Myrbetriq] 25 mg PO DAILY 03/20/20 03/20/20 Mirtazapine [Remeron] 15 mg PO HS 03/20/20 03/20/20 OLANZapine [ZyPREXA] 10 mg PO HS 03/20/20 03/20/20 bisacodyL 10 mg RECTAL DAILY PRN 03/20/20 03/20/20 cycloSPORINE 0.05% OPHTH SOLN 1 drop BOTH EYES BID 03/20/20 03/20/20 [Restasis] diphenhydrAMINE [Benadryl] 25 mg PO DAILY PRN 03/20/20 03/20/20 hydrOXYzine pamoate [hydrOXYzine 25 mg PO TID 01/23/21 01/23/21 PAMOATE] Previous Rx's Medication Instructions Recorded Lisinopril-Hctz 20-25 mg 1 each PO BID #60 tab 12/31/19 [Zestoretic 20-25] Metoprolol Tartrate [Lopressor] 100 mg PO BID #60 tab 12/31/19 Allergies Allergy/AdvReac Type Severity Reaction Status Date / Time Penicillins Allergy Unknown Verified 03/20/20 12:44 Review of Systems ROS Statement: Those systems with pertinent positive or pertinent negative responses have been documented in the HPI. ROS Other: All systems not noted in ROS Statement are negative. Limitations: ROS unobtainable due to patients medical condition (Intubated and unresponsive) Past Medical History Past Medical History: Diabetes Mellitus Additional Past Medical History / Comment(s): hep b, mental retardation History of Any Multi-Drug Resistant Organisms: None Reported Past Surgical History: Hysterectomy Past Psychological History: Schizophrenia Smoking Status: Never smoker Past Alcohol Use History: None Reported Past Drug Use History: None Reported - Past Family History Father Family Medical History: Unable to Obtain General Exam Limitations: physical limitation (Unresponsive) General appearance: other (Unresponsive) Head exam: Present: atraumatic, normocephalic Eye exam: Present: normal appearance Pupils: Present: other (No pupillary response.) ENT exam: Present: other (There is an endotracheal tube present) Neck exam: Present: normal inspection, other (No evidence of trauma. No bony deformity or step-off). Absent: tenderness Respiratory exam: Present: other (No spontaneous inspiratory effort. Auscultation with bagging reveals a few scattered rhonchi. No evidence of trauma to the chest wall.) Cardiovascular Exam: Present: other (No detectable PMI. No cardiac sounds. No palpable pulses.) GI/Abdominal exam: Present: soft, other (No evidence of trauma to the abdomen). Absent: distended, tenderness, mass Extremities exam: Present: normal inspection Back exam: Present: normal inspection, other (No evidence of trauma to the back. There does appear to be some lividity) Neurological exam: Present: other (Patient unresponsive. GCS 3. No cranial nerve or deep tendon reflexes). Absent: alert Skin exam: Present: warm, dry, intact, cyanosis. Absent: rash Medical Decision Making - Medical Decision Making The patient has been asystolic despite ACLS protocol for 27 minutes. Additional round of epinephrine and CPR. Patient maintains in asystole and therefore is pronounced at 0604. Attempted to reach patient's physician Dr. Glass, but we only have a clinic number and there is no answering service. The case is discussed with medical program specialist. They would like patient brought to [facility] pending there further attempts to reach guardian or family or primary physician Disposition Clinical Impression: Cardiopulmonary arrest Disposition: Condition: Undetermined Is patient prescribed a controlled substance at d/c from ED?: No Referrals: Rohan Glass MD [Primary Care Provider] - 1-2 days Decision Date: 03/29/21 Decision Time: 06:04 Preliminary Cause of : Cardiopulmonary arrest
== END 2021-03-29 09:38 | disposition expired ==
LOC: EC 06:01
DX: I46.9 Cardiac arrest, cause unspecified (principal); Z79.82 Long term (current) use of aspirin; Z79.4 Long term (current) use of insulin; Z88.0 Allergy status to penicillin; E11.9 Type 2 diabetes mellitus without complications; Z90.710 Acquired absence of both cervix and uterus; F25.9 Schizoaffective disorder, unspecified
CPT/HCPCS: 99285; 92950; J0171